=== PATIENT | female | born 1975 | race Caucasian/White ===

== ENCOUNTER 2025-02-08 05:45 | Inpatient (IN) ==
--- NOTE | 2025-01-19 09:16 | PAT Medication Instructions ---
Medication Instructions Date of Service January 19, 2025 Home Medications cholecalciferol (vitamin D3) 125 mcg (5,000 unit) tablet (Vitamin D3) 250 mcg PO QAM fexofenadine 180 mg tablet 180 mg PO QAM gabapentin 300 mg capsule 300 mg PO QAM losartan 25 mg tablet 25 mg PO QAM meloxicam 15 mg tablet 15 mg PO QAM metoprolol tartrate 25 mg tablet 25 mg PO QAM ASK your surgeon for instructions meloxicam 15 mg tablet 15 mg PO QAM DO NOT take the morning of surgery cholecalciferol (vitamin D3) 125 mcg (5,000 unit) tablet (Vitamin D3) 250 mcg PO QAM fexofenadine 180 mg tablet 180 mg PO QAM losartan 25 mg tablet 25 mg PO QAM Take morning of surgery With a small sip of water, OTHERWISE NOTHING TO EAT OR DRINK AFTER MIDNIGHT: gabapentin 300 mg capsule 300 mg PO QAM metoprolol tartrate 25 mg tablet 25 mg PO QAM Other Notes If you have any questions please call us at [phone] or [phone] or [phone] or [phone]
--- NOTE | 2025-01-24 14:01 | Anesthesiology Consultation ---
Date of Service January 24, 2025 Assessment & Plan (1) Encounter for pre-operative examination: Chart Review Chart Review: Acceptable Risk for Surgery (pending surgeon ordered PCP clearance ) and Patient seen in Pre Admission Testing - Awaiting PCP clearance 02/02/25 (Dr Blackmon) Sensitive to pain medication 6 beers daily Per PAT appt on 01/24/25, no recent illness/disease exposures, illness related symptoms, or recent illness/disease positive tests. Will leave to surgeon's discretion if preop Covid testing needed Teaching & Discussion Pre-Anesthesia Teaching/Discussion Notes: Instructed NPO after midnight before surgery,except medications with 15 cc of water. Medication instructions provided according to the PAT guidelines. History Surgery Operation Date: 02/08/25 10:05 Proposed Procedures p L5-S1 Decompression and Fusion with Spinal Cord Monitoring - Gaston Quintero DO Height/Weight Height: 5 ft 8 in Weight: 120.2 kg Allergies Allergy/AdvReac Type Severity Reaction Status Date / Time Surgical Glue Allergy Intermediate Swelling, Uncoded 01/17/25 12:09 Redness, Weeping of wound Medications Home Medications Medication Instructions Recorded Confirmed Last Taken cholecalciferol (vitamin D3) 125 250 mcg PO QAM 01/17/25 01/17/25 Unknown mcg (5,000 unit) tablet (Vitamin D3) fexofenadine 180 mg tablet 180 mg PO QAM 01/17/25 01/17/25 Unknown gabapentin 300 mg capsule 300 mg PO QAM 01/17/25 01/17/25 Unknown losartan 25 mg tablet 25 mg PO QAM 01/17/25 01/17/25 Unknown meloxicam 15 mg tablet 15 mg PO QAM 01/17/25 01/17/25 Unknown metoprolol tartrate 25 mg tablet 25 mg PO QAM 01/17/25 01/17/25 Unknown Past Medical History Medical History Adverse effect of anesthesia "Slow to wake"- groggy- no hx of reintubation or ICU stay Headache "pain related" to cervical/lumbar area as per patient Hypertension Exercise / Class Metabolic Activity III < 4 Walking/Shop/Light housework (no chest pain or SOB with flat surface ambulation ) Past Surgical History Surgical History History of arthroscopy of left knee History of arthroscopy of left shoulder History of cervical spinal surgery (2022) hardware present - Painful ROM but not limited as per patient Hx of gastric bypass Hx of hysterectomy Hx of tubal ligation Hx of wisdom tooth extraction Past Anesthesia History No Hx of Anesthesia Complications (with exception to slow to wake- groggy- no hx of reintubation or ICU stay ) and No Family Hx of Anesthesia Complications History of PONV History of PONV (due to pain medication - improved with IV anti-nausea medication ) and Hx of Motion Sickness Social History Smoking Status: Never smoker Do You Dip or Chew Tobacco: No Hx Alcohol Use: Yes Alcohol type: beer alcohol intake frequency: 3 or more drinks per day (6 beers/day ) Hx Substance Use: No substance use type: does not use Review of Systems - Hx of snoring- no hx of sleep study Patient denies chest pain, shortness of breath, dyspnea on exertion, reflux, cough, wheezing, palpitations. No hx of seizures, stroke, [place]. No hx of blood clots or blood transfusions Physical Exam Vital Signs VITALS BP 148/89 P 79 TEMP 98.3 SP02 98% RESP 16 Constitutional no acute distress ENMT Mouth: no TMJ clicking Thyromental Distance: > or= 3.5 Finger Breadths (3.5) Mallampati Class: III Missing side tooth Neck + thick neck and + limited neck extension (significant ) Respiratory normal respiratory effort; no respiratory distress Auscultation: lungs clear to auscultation bilaterally; no wheezes Cardiovascular Rate/Rhythm: regular rate and regular rhythm Heart Sounds: no murmur Vessels: no carotid bruit Musculoskeletal Spine: + pain with cervical ROM Extremities: extremities normal to inspection Psychiatric Orientation: alert Lab Results Anesthesia Preop Results Results Anesthesia Widget: WBC 6.02 K/ul (4.8-10.8) 01/24/25 Hgb 12.8 g/dl (12.0-16.0) 01/24/25 Hct 38.7 % (37.0-47.0) 01/24/25 Plt 299 K/uL (130-400) 01/24/25 Na 137 mmol/L (136-145) 01/24/25 K 4.5 mmol/L (3.5-5.1) 01/24/25 Cl 101 mmol/L (98-107) 01/24/25 CO2 30 mmol/L (21-32) 01/24/25 BUN 8 mg/dl (6-23) 01/24/25 Creat 0.68 mg/dl (0.6-1.2) 01/24/25 Glucose Level 91 mg/dl (70-99(Fasting)) 01/24/25 PT 11.0 Seconds (9.0-12.0) 01/24/25 PTT 26 Seconds (21-31) 01/24/25 INR 1.0 (0.9-1.1) 01/24/25 Urine Color Yellow 01/24/25 Urine Appearance Clear (Clear) 01/24/25 Urine pH 5.5 (4.5-7.5) 01/24/25 Urine Specific [place] 1.004 (1.000-1.030) 01/24/25 Urine Protein Negative (Negative) 01/24/25 Urine Glucose (UA) Negative (Negative) 01/24/25 Urine Ketones Negative (Negative) 01/24/25 Urine Blood Negative (Negative) 01/24/25 Urine Nitrite Negative (Negative) 01/24/25 Urine Bilirubin Negative (Negative) 01/24/25 Urine Urobilinogen Negative (Negative) 01/24/25 Urine Leukocyte Esterase Trace (Negative) H 01/24/25 Urine WBC (Auto) 0-5 /hpf (0-5) 01/24/25 Urine RBC (Auto) 0-2 /hpf (0-2) 01/24/25 Urine Hyaline Casts (Auto) 0-2 /lpf (0-2) 01/24/25 Urine Epithelial Cells (Auto) 0-2 /hpf (0-2) 01/24/25 Urine Bacteria (Auto) 4+ (None Seen) H 01/24/25 Blood Type A Positive 01/24/25 Antibody Screen NEGATIVE 01/24/25 Testing Laboratory Results Abnormal UA- urine cultures pending- will inform surgeon's office- will leave final results to surgeon's discretion to review and determine how to proceed Electrocardiogram Date: 01/24/25 Findings: + NSR @ (72bpm) Nonspecific ST abnormality Chest X-Ray Date: 01/24/25 Findings: + NAD
[2025-02-08] MEDS: ACETAMINOPHEN 500 MG TAB PO SCH (06:08)
[2025-02-08] MEDS: CeleBREX 200 MG CAP PO SCH (06:08)
[2025-02-08] MEDS: LR 60ML/HR IV SCH (06:09)
[2025-02-08] MEDS: GABAPENTIN 900 MG DOSE PO SCH (06:10)
[2025-02-08] MEDS ORDERED: ePHEDrine sulfate 50 MG/ML AMP IV PRN (06:28)
[2025-02-08] MEDS ORDERED: HYDROmorphone INJ 1 MG/ML SYRINGE IV PRN (06:28)
[2025-02-08] MEDS ORDERED: ATROPINE SULFATE 0.1 MG/ML 10ML SYR IV PRN (06:28)
[2025-02-08] MEDS ORDERED: ONDANSETRON INJ 2 MG/ML 2 ML VIAL IV PRN (06:28)
[2025-02-08] MEDS: LR 15ML/HR IV SCH (06:30)
[2025-02-08] MEDS ORDERED: ONDANSETRON INJ 2 MG/ML 2 ML VIAL ONE (07:11)
[2025-02-08] MEDS ORDERED: LIDOCAINE 2% 2 ML VIAL/AMP(20MG/ML) INFIL ONE ×2 (07:11)
[2025-02-08] MEDS ORDERED: MIDAZOLAM HCL 1 MG/ML 2ML VIAL ONE (07:11)
[2025-02-08] MEDS ORDERED: ROCURONIUM BROMIDE 10 MG/ML 5 ML VIAL IV ONE ×2 (07:11→08:24)
[2025-02-08] MEDS ORDERED: DEXAMETHASONE SOD INJ 4 MG/ML VIAL ONE (07:11)
[2025-02-08] MEDS ORDERED: fentaNYL citrate PF 100 MCG/2 ML VIAL ONE (07:11)
[2025-02-08] MEDS ORDERED: PROPOFOL IV EMULSION 10 MG/ML 20 ML VIAL IV ONE ×2 (07:11)
[2025-02-08] MEDS ORDERED: SUGAMMADEX SODIUM 200 MG/2 ML VIAL IV ONE (07:15)
--- NOTE | 2025-02-08 07:40 | History & Physical Bridge Note ---
Date of Service February 08, 2025 History & Physical Bridge Note I have examined the patient, reviewed the History & Physical and in the interval since the performance of the History & Physical I have noted the following changes of clinical significance: no changes noted
--- NOTE | 2025-02-08 07:41 | History & Physical Report ---
Date of Service February 08, 2025 Assessment & Plan (1) Lumbosacral spondylosis with radiculopathy: Plan: L5-S1 decompression fusion History of Present Illness Chief Complaint: Back and leg pain Primary Care Provider: Renato Blackmon DO This is a 50-year-old female who presents with persistent back and leg pain after failing since course of nonoperative care is here for surgical invention.-year-old Allergies Allergy/AdvReac Type Severity Reaction Status Date / Time Surgical Glue Allergy Intermediate Swelling, Uncoded 02/08/25 06:05 Redness, Weeping of wound Home Medications Medication Instructions Recorded Confirmed Type cholecalciferol (vitamin D3) 125 250 mcg PO QAM 01/17/25 02/08/25 History mcg (5,000 unit) tablet (Vitamin D3) fexofenadine 180 mg tablet 180 mg PO QAM 01/17/25 02/08/25 History gabapentin 300 mg capsule 300 mg PO QAM 01/17/25 02/08/25 History losartan 25 mg tablet 25 mg PO QAM 01/17/25 02/08/25 History meloxicam 15 mg tablet 15 mg PO QAM 01/17/25 02/08/25 History metoprolol tartrate 25 mg tablet 25 mg PO QAM 01/17/25 02/08/25 History Past Med/Surg History Problem List (Updated 02/08/25 @ 07:40 by Gaston Quintero DO) Lumbosacral spondylosis with radiculopathy Encounter for pre-operative examination Medical History Adverse effect of anesthesia "Slow to wake"- groggy- no hx of reintubation or ICU stay Headache "pain related" to cervical/lumbar area as per patient Hypertension Surgical History History of arthroscopy of left knee History of arthroscopy of left shoulder History of cervical spinal surgery (2022) hardware present - Painful ROM but not limited as per patient Hx of gastric bypass Hx of hysterectomy Hx of tubal ligation Hx of wisdom tooth extraction Social History Smoking Status: Never smoker Second Hand Exposure: No; Do You Dip or Chew Tobacco: No; Tobacco Cessation Education Requested by Patient: No Hx Alcohol Use: Yes Alcohol type: beer Hx Substance Use: No Preferred Language: Bahamian Communication Ability: Effective Literacy Coach Required: No Beliefs That Will Affect Care: None Current Living Situation: Spouse Other Information That Helps Us Care for You: No Feels Safe at Home: Yes Safety Concerns: Feels Safe At This Time Assistive Devices: Glasses Physical Exam Physical Exam: Patient alert and oriented heart regular rhythm lungs clear Results & Data Results & Data Vital Signs (Past 12 Hours) Vital Signs Temp Pulse Resp BP Pulse Ox O2 Del Method 02/08/25 05:59 37.1 C 72 20 176/103 H 96 Room Air
[2025-02-08] MEDS: ceFAZolin 3000MG 3,000 MG/72.5 ML BAG IV SCH (07:47)
[2025-02-08] MEDS ORDERED: PHENYLEPHRINE 100MCG/ML 5ML SYR ONE ×2 (08:10→08:26)
[2025-02-08] MEDS: BUPIVACAINE/EPINEPHRINE 0.25% 1:200,000 30 ML VIAL ONE (08:18)
[2025-02-08] MEDS: ceFAZolin 330 MG/ML 1 GM VIAL ONE (08:18)
[2025-02-08] MEDS ORDERED: ePHEDrine sulfate 50 MG/5 ML SYR ONE (08:26)
[2025-02-08] MEDS ORDERED: MoRPHine SULFATE 2 MG/ML CARP ONE (09:02)
[2025-02-08] MEDS: SURGICEL ABSORB HEMOSTAT 2IN X 14IN TOP ONE (09:02)
--- NOTE | 2025-02-08 09:19 | Operative Report ---
Post Operative Report Pre & Post Diagnosis Operation Date: 02/08/25 07:45 Pre-Op Diagnosis: #1 lumbar spondylolisthesis with radiculopathy #2 lumbar spondylosis with radiculopathy #3 morbid obesity Post-Op Diagnosis: Same I identified the patient and participated in the time-out.: Yes Procedure Operation Date: 02/08/25 07:45 Actual Procedures #1 lumbar decompression bilaterally facetectomies and foraminotomies L5-S1. #2 posterior spinal fusion L5-S1. #3 placed posterior instrumentation using Valdez L5-S1. #4 interbody fusion L5-S1 to #5 for 13 x 26 mm x 2 at L5-S1. #6 placement locally harvested morselized autograft posterior gutters. #7 placement infuse collagen sponge, with Koros in the posterior gutters and os design interbody space. #8 application of versa wrap over the exposed dura. Surgeon Gaston Quintero, DO Drying Machine Operator Jeni Chacon Estimated Blood Loss 100 Findings See Below The patient is 5 foot 8 weighing over 117 kg with a BMI in excess of 39. Patient's body mass did create significant technical difficulty with positioning exposure and the procedure itself at least 50% increased the operative time. I am recommending a modifier 22. Specimens None Indications This is a 50-year-old female presents above-mentioned diagnosis after failing course of nonoperative care is here for surgical invention. Description of Procedure Patient is met with identified informed consent obtained. Patient was then taken to the operative suite underwent intubation placed in a prone position on the Tyson table atop the Inocencio frame. All bony prominences well-padded eyes inspected to ensure no external precipice upon the. This point the lumbar spine was prepped and draped in normal sterile fashion. Sharp dissection with the assistance of Bovie cautery performed down to and exposing the lamina transverse processes of L5-S1. Obvious bilateral pars defect identified. A complete laminectomy of L5 was then performed including bilateral medial facetectomies and foraminotomies addressing severe neural compression. Pedicle screws then placed in L5-S1 bilaterally with assistance of fluoroscopy in the process jack placed. By way of transforaminal approach on the left a discectomy of L5-S1 was performed endplates corrected to subcortical bleeding bone and a 13 x 26 mm spiral cage filled with os design bone graft tapped in position. And then proceeded to the right transforaminal region L5-S1. Again discectomy performed. Endplates guided to subcortical bleeding bone and a second 13 x 26 mm spiral cage filled with os design tapped in position. The rods then compressed locked into final position bilaterally. The transverse processes of L5 and the sacral ala burred to subcortical bleeding bone. Infuse collagen sponge bath Koros and local autograft placed in the posterior gutters. 15 round MILLICENT drain inserted. Versa wrap placed over the exposed dura. The incision was then closed with 1 Vicryl the fascia 2-0 Vicryl subcutaneously and 4 Monocryl for final skin closure. Steri-Strips and sterile dressing placed. Patient waken taken PACU stable condition. Please note Jeni Chacon was present at the entire procedure note patient positioning complex portion of the surgery and final skin closure. Im ordering 10 grams of Collagen Powder ([facility] A6010 Primary Dressing) and 10 bordered super absorbent ([facility] A6196 Secondary Dressing) to treat an incision wound that was caused by a spine procedure. The incision is approximately 2 cm(W) x 2 cm(L) down to the spinal column and epidural space 2 cm (D) in size and is a full thickness wound showing no signs of infection. Collagen comes in 1 gram packets so 10 packets were ordered. Given the size of the wound, with moderate exudate I chose to order a 10 day supply. The patient will be provided instructions for proper application of the collagen wound kit. The patient will be asked to apply the collagen powder daily and then cover it with sterile dressings dispensed. Collagen was selected as I expect the collagen to attract monocytes and fibroblasts, act as a sacrificial substrate for MMPs, and ultimately proved a matrix for tissue and vessel growth. The collagen will act as a primary dressing in this scenario. It is medically necessary for proper healing of these wounds to improve bioavailability and contact with each wound surface, this is also to help prevent infection of wounds and promote healing ultimately leading to a better healing outcome and limit the risk of infection. I attest to the content of the Intraoperative Record and any orders documented therein. Any exceptions are noted below.
[2025-02-08] MEDS: FLOSEAL HEMOSTATIC MATRIX 10ML TOP ONE (09:20)
[2025-02-08] MEDS: fentaNYL citrate PF 100 MCG/2 ML VIAL IV PRN (09:41)
[2025-02-08] MEDS ORDERED: SOD PHOSPHATE/SOD BIPHOSPHATE ENEMA 132 ML BTL PR PRN (10:32)
[2025-02-08] MEDS ORDERED: MAGNESIUM HYDROXIDE SUSP 30 ML UDC PO PRN (10:32)
[2025-02-08] MEDS ORDERED: hydrOXYzine HCl 25 MG TAB PO PRN (10:32)
[2025-02-08] MEDS ORDERED: NALOXONE HCL 0.4 MG/1 ML VIAL/CARP IV PRN (10:32)
[2025-02-08] MEDS ORDERED: LORazepam 2 MG/1 ML VIAL IV PRN (10:32)
[2025-02-08] MEDS ORDERED: DO NOT ADMINISTER PNEUMOCOCCAL VACCINE PRN (10:32)
[2025-02-08] MEDS ORDERED: METOCLOPRAMIDE HCL INJ 5 MG/ML 2 ML VIAL IV PRN (10:32)
[2025-02-08] MEDS ORDERED: FAMOTIDINE 20 MG TAB PO PRN (10:32)
[2025-02-08] MEDS ORDERED: ALUMINUM/MAGNESIUM SUSP 30 ML UDC PO PRN (10:32)
[2025-02-08] MEDS ORDERED: LORazepam 0.5 MG TAB PO PRN (10:32)
[2025-02-08] MEDS ORDERED: DO NOT ADMINISTER FLU VACCINE PRN (10:32)
[2025-02-08] MEDS ORDERED: bisacodyL 10 MG SUPP PR PRN (10:32)
[2025-02-08] MEDS ORDERED: PROMETHAZINE 12.5 MG/50.5 ML BAG IV PRN (10:32)
[2025-02-08] MEDS ORDERED: diphenhydrAMINE Capsule 25 MG CAP PO PRN (10:32)
--- NOTE | 2025-02-08 10:34 | Fluoroscopy Report ---
FL lumbar spine 2-3V CLINICAL HISTORY: L5-S1 DECOMPRESSION AND FUSION COMPARISON STUDY: None FLUOROSCOPY TIME: 23.4 seconds FLUOROSCOPY IMAGES: 2 EXPOSURE DOSE: 23.79 mGy FINDINGS: Fluoroscopic guidance was provided for L5-S1 discectomy and fusion. IMPRESSION: Please refer to the procedure report for evaluation based upon her real-time fluoroscopic observation ACT [id number]: Negative or not required by law. Electronically signed by: Maria M Chanel M.D. 02/08/2025 10:33 AM
--- NOTE | 2025-02-08 10:57 | Consultation ---
Date of Consultation February 08, 2025 Assessment & Plan (1) Lumbosacral spondylosis with radiculopathy: (2) Hypertension: Plan This is a 50 yr old F who has a significant PMH of HTN and hx of gastric bypass who presents for elective lumbar procedure by Dr. Quintero. Pt underwent a L5-S1 decompression and fusion. # S/P Lumbar decompression and fusion L5-S1 by Dr. Quintero EBL 100ml tolerated procedure well pain, wound, activities per ortho monitor hgb, pre op was 12.8 #HTN: chronic, stable continue metoprolol and losartan with parameters DVT ppx: per primary PCP: Dr. Spaulding FULL CODE Dispo: per primary Thank you for this consultation. We will follow the patient with you during their hospital stay. You can reach a member of the [facility] Hospitalist Team 04/05 via hospitalist role on tiger text. I spent a total of 40 minutes coordinating, documenting and providing care for this patient excluding time spent in the performance of separately billed services or time spent by another provider/QHP. Supervising Physician Co-Signing Physician Notes Patient is a 50-year-old female with history of hypertension, gastric bypass surgery, seasonal allergies and other medical problems who was consulted for postop medical management. Patient is doing well postoperatively. She denies any significant pain at surgical site. Also denies any chest pain, dyspnea, nausea, vomiting, abdominal pain. Please review HPI for complete details. Physical Exam: Vitals signs as noted above General Appearance:Obese, no apparent distress Head: normocephalic, Atraumatic Eyes: normal inspection, EOMI Neck: supple, Trachea midline Respiratory/Chest: Normal breath sounds, CTA, No accessory muscle use Cardiovascular: S1, S2, No murmur Abdomen/GI:Soft, Non tender, Bowel sounds present Back:Surgical site in dressing Extremities/Musculoskeletal:normal inspection, no edema Neurologic/Psych:AAOX3, grossly no focal neurological deficits Skin: normal color, warm S/P lumbar decompression, fusion surgery Hypertension Seasonal allergies Vitamin D deficiency Monitor for postop blood loss anemia Continue bowel regimen to prevent constipation DVT prophylaxis, activity per primary team Pain control as needed PT OT when appropriate I personally interviewed and examined the patient at bedside. I have reviewed the advanced practitioner's documentation on the date of service referred in note and agree with plan. Patient's care is coordinated with Zofia Mosley. Please refer to the documentation above for details of patient's presentation and for discussion of other issues. I spent a total of 26minutes coordinating, documenting, and providing care for this patient excluding time spent in the performance of separately billed services or time spent by another provider/QHP. History of Present Illness Requesting Physician: Dr. Quintero Reason for Consultation: Post op medical management Attending Physician: Gaston Quintero, DO History of Present Illness This is a 50 yr old F who has a significant PMH of HTN and hx of gastric bypass who presents for elective lumbar procedure by Dr. Quintero. Pt underwent a L5-S1 decompression and fusion. She tolerated the procedure well. Her eBL was 100ml. Hx obtained from pt and at bedside. She complains of low back pain, 5/10. Prior to surgery she states she has had debilitating back pain to where she is on light duty at work. She is an EMS worker. She also had symptoms going down her left leg. SHe denies f/c/s, chest pain, sob, n/v/d, abd pain. She denies any issues passing urine/stool prior to surgery. She follows with Dr. Spaulding for routine primary care. She has a hx of HTN controlled on losartan and metoprolol. Allergies Allergy/AdvReac Type Severity Reaction Status Date / Time Surgical Glue Allergy Intermediate Swelling, Uncoded 02/08/25 06:05 Redness, Weeping of wound Home Medications Medication Instructions Recorded Confirmed Type cholecalciferol (vitamin D3) 125 250 mcg PO QAM 01/17/25 02/08/25 History mcg (5,000 unit) tablet (Vitamin D3) fexofenadine 180 mg tablet 180 mg PO QAM 01/17/25 02/08/25 History gabapentin 300 mg capsule 300 mg PO QAM 01/17/25 02/08/25 History losartan 25 mg tablet 25 mg PO QAM 01/17/25 02/08/25 History meloxicam 15 mg tablet 15 mg PO QAM 01/17/25 02/08/25 History metoprolol tartrate 25 mg tablet 25 mg PO QAM 01/17/25 02/08/25 History Patient History Medical History Headache "pain related" to cervical/lumbar area as per patient Hypertension Adverse effect of anesthesia "Slow to wake"- groggy- no hx of reintubation or ICU stay Surgical History Hx of wisdom tooth extraction History of arthroscopy of left knee History of arthroscopy of left shoulder Hx of gastric bypass Hx of hysterectomy Hx of tubal ligation History of cervical spinal surgery (2022) hardware present - Painful ROM but not limited as per patient Social History Smoking Status: Never smoker Second Hand Exposure: No; Do You Dip or Chew Tobacco: No; Tobacco Cessation Education Requested by Patient: No Hx Alcohol Use: Yes Alcohol type: beer Hx Substance Use: No Preferred Language: Amharic Communication Ability: Effective Assembly Member Required: No Beliefs That Will Affect Care: None Current Living Situation: Spouse Other Information That Helps Us Care for You: No Feels Safe at Home: Yes Safety Concerns: Feels Safe At This Time Assistive Devices: Glasses Review of Systems Review of Systems: All systems reviewed & are unremarkable except as noted in HPI & below Physical Exam Physical Exam: constitutional: WD/WN, vitals as above, NAD, sitting up in bed, pleasant, conversing easily Head: Normocephalic, Atraumatic Eyes: PERRL, conjunctivae normal, anicteric sclerae ENMT: external ear and nose normal, oropharynx normal Neck: trachea midline, no thyromegaly normal visual inspection Respiratory: normal respiratory effort, lungs clear to auscultation, no wheeze, rales, rhonchi. Normal insp/exp effort, no accessory muscle use Cardiovascular: RRR, no murmur, no edema Vessels: no JVD or carotid bruit Chest: normal inspection of chest Abdomen: normal bowel sounds, soft, nontender, no hepatosplenomegaly Musculoskeletal: no cyanosis or clubbing, extremities motor strength 5/5 Skin: no rashes, warm and dry normal turgor , lumbar incision CDI Neurologic: PERRL, EOMI, accommodation nl, no face palsy, no dysarthria CN's II-XI intact bilaterally and moves all extremities Psychiatric: A+Ox3, euthymic affect Lymphatic: no cervical or axillary lymphadenopathy : deferred Results & Data Vital Signs (Past 12 Hours) Vital Signs Temp Pulse Pulse Resp BP BP Pulse Ox 02/08/25 10:10 71 20 134/86 95 02/08/25 10:00 70 14 130/95 94 02/08/25 09:50 36.4 C L 77 15 127/91 94 02/08/25 09:40 83 16 128/84 95 02/08/25 09:31 36.2 C L 89 19 135/82 96 02/08/25 05:59 37.1 C 72 20 176/103 H 96 O2 Del Method O2 Flow Rate 02/08/25 10:10 Nasal Cannula 2 02/08/25 10:00 Nasal Cannula 2 02/08/25 09:50 Nasal Cannula 2 02/08/25 09:40 Oxymask 4 02/08/25 09:31 Oxymask 4 02/08/25 05:59 Room Air Laboratory Results I have independently reviewed and interpreted patient's pre admitting labs including CBC, CMP, PTT, PT/INR. Diagnostic Findings Lumbar Spine X-Ray 02/08/25 07:45 FL lumbar spine 2-3V CLINICAL HISTORY: L5-S1 DECOMPRESSION AND FUSION COMPARISON STUDY: None FLUOROSCOPY TIME: 23.4 seconds FLUOROSCOPY IMAGES: 2 EXPOSURE DOSE: 23.79 mGy FINDINGS: Fluoroscopic guidance was provided for L5-S1 discectomy and fusion. IMPRESSION: Please refer to the procedure report for evaluation based upon her real-time fluoroscopic observation ACT [id number]: Negative or not required by law. Electronically signed by: Maria M Chanel M.D. 02/08/2025 10:33 AM Medications Administered Current Inpatient Medications Acetaminophen (Acetaminophen 500 Mg Tab) 1,000 mg PO PREOP FERNANDO Stop: 02/08/25 18:00 Last Admin: 02/08/25 06:08 Dose: 1,000 mg Acetaminophen (Acetaminophen 500 Mg Tab) 1,000 mg PO Q8H PRN PRN Reason: MILD Pain Scale 1,2,3 & Pre PT Stop: 03/10/25 10:31 Al Hydrox/Mg Hydrox/Simethicone (Aluminum/Magnesium Susp 30 Ml Udc) 30 ml PO Q6H PRN PRN Reason: Dyspepsia Stop: 03/10/25 10:31 Atropine Sulfate (Atropine Sulfate 0.1 Mg/Ml 10ml Syr) 0.5 mg IV Q1M PRN PRN Reason: PACU Use-HR<40 &/or Bradycardi Stop: 02/08/25 14:28 Bisacodyl (Bisacodyl 10 Mg Supp) 10 mg NH DAILY PRN PRN Reason: Constipation Stop: 03/10/25 10:31 Celecoxib (Celebrex 200 Mg Cap) 200 mg PO PREOP FERNANDO Stop: 02/08/25 18:00 Last Admin: 02/08/25 06:08 Dose: 200 mg Diphenhydramine HCl (Diphenhydramine Capsule 25 Mg Cap) 25 mg PO Q6H PRN PRN Reason: Allergic Rhinitis/Insomnia Stop: 03/10/25 10:31 Ephedrine Sulfate (Ephedrine Sulfate 50 Mg/Ml Amp) 5 mg IV Q5M PRN PRN Reason: PACU Use Only-SBP<90 mmHg Stop: 02/08/25 14:28 Famotidine (Famotidine 20 Mg Tab) 20 mg PO Q12H PRN PRN Reason: Dyspepsia Stop: 03/10/25 10:31 Fentanyl Citrate (Fentanyl Citrate Pf 100 Mcg/2 Ml Vial) 25 mcg IV Q5M PRN PRN Reason: PACU Use Only-Pain Stop: 02/08/25 14:28 Last Admin: 02/08/25 09:54 Dose: 25 mcg Fexofenadine HCl (Fexofenadine Hcl 180 Mg Tab) 180 mg PO QAM COUNTS INCLUDE 234 BEDS AT THE [facility] Stop: 03/11/25 08:59 Gabapentin (Gabapentin 900 Mg Dose) 900 mg PO PREOP FERNANDO Stop: 02/08/25 18:00 Last Admin: 02/08/25 06:10 Dose: 600 mg Gabapentin (Gabapentin 300 Mg Cap) 300 mg PO QAM COUNTS INCLUDE 234 BEDS AT THE [facility] Stop: 03/11/25 08:59 Hydromorphone HCl (Hydromorphone Inj 1 Mg/Ml Syringe) 0.25 mg IV Q5M PRN PRN Reason: PACU Use Only-Pain Stop: 02/08/25 14:28 Hydromorphone HCl (Hydromorphone Inj 0.5 Mg/0.5 Ml Syr) 0.5 mg IV Q3H PRN PRN Reason: MODERATE Pain (Scale 4,5,6) & Pre PT Stop: 02/22/25 10:31 Hydromorphone HCl (Hydromorphone Inj 1 Mg/Ml Syringe) 1 mg IV Q3H PRN PRN Reason: SEVERE Pain (Scale 7,8,9,10) Stop: 02/22/25 10:31 Hydroxyzine HCl (Hydroxyzine Hcl 25 Mg Tab) 25 mg PO Q8H PRN PRN Reason: Anxiety Stop: 03/10/25 10:31 Lactated Ringer's (Lr) 1,000 mls @ 60 mls/hr IV .[id number] FERNANDO Stop: 02/08/25 22:39 Last Admin: 02/08/25 06:09 Dose: Not Given Lactated Ringer's (Lr) 1,000 mls @ 15 mls/hr IV .Q24H FERNANDO Stop: 02/09/25 05:59 Last Infusion: 02/08/25 07:45 Dose: Infused Cefazolin Sodium (Ancef 3000mg) 3,000 mg in 72.5 mls @ 130 mls/hr IV PREOP FERNANDO; Protocol Stop: 02/08/25 18:00 Last Admin: 02/08/25 07:47 Dose: 130 mls/hr Acetaminophen (Ofirmev) 1,000 mg in 100 mls @ 400 mls/hr IV Q8H PRN PRN Reason: Pain Rating 1-3 & Pre PT Stop: 02/09/25 10:32 Cefazolin Sodium (Ancef 2000mg) 2,000 mg in 15 mls @ 3.75 mls/min IV Q8H FERNANDO; Protocol Stop: 02/08/25 23:33 Promethazine HCl (Phenergan) 12.5 mg in 50.5 mls @ 202 mls/hr IV Q6H PRN PRN Reason: Nausea And Vomiting Stop: 03/10/25 10:31 Dexamethasone 6 mg/ Syringe 1.5 mls @ 1 mls/min IV DAILY FERNANDO Stop: 02/11/25 09:02 Influenza Virus Vaccine Quadrival (Do Not Administer Flu Vaccine) 1 each N/A PRN PRN PRN Reason: Notification Stop: 03/10/25 10:31 Lorazepam (Lorazepam 0.5 Mg Tab) 0.5 mg PO Q8H PRN PRN Reason: Sedation/Anxiety Stop: 03/10/25 10:31 Lorazepam (Lorazepam 2 Mg/1 Ml Vial) 0.5 mg IV Q8H PRN PRN Reason: Sedation/Anxiety Stop: 03/10/25 10:31 Losartan Potassium (Losartan Potassium 25 Mg Tab) 25 mg PO QAM COUNTS INCLUDE 234 BEDS AT THE [facility] Stop: 03/11/25 08:59 Magnesium Hydroxide (Magnesium Hydroxide Susp 30 Ml Udc) 30 ml PO Q24H PRN PRN Reason: Constipation Stop: 03/10/25 10:31 Metoclopramide HCl (Metoclopramide Hcl Inj 5 Mg/Ml 2 Ml Vial) 10 mg IV Q6H PRN PRN Reason: Nausea &/or Vomiting Stop: 03/10/25 10:31 Metoprolol Tartrate (Metoprolol Tartrate 25 Mg Tab) 25 mg PO QAM COUNTS INCLUDE 234 BEDS AT THE [facility] Stop: 03/11/25 08:59 Naloxone HCl (Naloxone Hcl 0.4 Mg/1 Ml Vial/Carp) 0.1 mg IV Q5M PRN PRN Reason: Oversedation/Resp depression Stop: 03/10/25 10:31 Ondansetron HCl (Ondansetron Inj 2 Mg/Ml 2 Ml Vial) 4 mg IV ONCE PRN PRN Reason: PACU Use Only-Nausea/Vomiting Stop: 02/08/25 14:28 Ondansetron HCl (Ondansetron Inj 2 Mg/Ml 2 Ml Vial) 4 mg IV Q6H PRN PRN Reason: Nausea &/or Vomiting Stop: 03/10/25 10:31 Ondansetron HCl (Ondansetron 4 Mg Od Tab) 4 mg PO Q6H PRN PRN Reason: Nausea Stop: 03/10/25 10:31 Oxycodone HCl (Oxycodone Hcl Ir 5 Mg Tab (Immediate Release)) 5 - 10 mg PO Q4H PRN PRN Reason: Pain & Pre PT Stop: 02/22/25 10:31 Pneumococcal Polyvalent Vaccine (Do Not Administer Pneumococcal Vaccine) 1 each N/A PRN PRN PRN Reason: Notification Stop: 03/10/25 10:31 Polyethylene Glycol (Polyethylene (Miralax) 17 Gm Pack) 17 gm PO Q6 FERNANDO Stop: 03/11/25 05:59 Senna/Docusate Sodium (Docusate Sodium/Senna 50/8.6mg Tab) 2 tab PO HS FERNANDO Stop: 03/10/25 20:59 Sodium Biphosphate/Sodium Phosphate (Sod Phosphate/Sod Biphosphate Enema 132 Ml Btl) 132 ml NH ONE PRN PRN Reason: Constipation Stop: 03/10/25 10:31 Tramadol HCl (Tramadol Hcl 50 Mg Tablet) 50 - 100 mg PO Q4H PRN PRN Reason: Moderate-Severe pain & Pre PT Stop: 03/10/25 10:31 Vitamin D (Cholecalciferol 125 Mcg (5,000 Units) Tab) 250 mcg PO QAM FERNANDO Stop: 03/11/25 08:59 ECG Additional Comments: I have independently reviewed and interpreted patient's admitting EKG which revealed: NSR, 72bpm, pt with T wave inversions in leads III and V3, otherwise no consecutive ST changes
--- NOTE | 2025-02-08 11:03 | Anesthesiology Progress Note ---
Date of Service February 08, 2025 Anesthesia Post Procedure Vital Signs Vital Signs: Temp Pulse Pulse Resp BP BP Pulse Ox 02/08/25 10:51 36.5 C 66 16 128/89 96 02/08/25 10:10 71 20 134/86 95 02/08/25 10:00 70 14 130/95 94 02/08/25 09:50 36.4 C L 77 15 127/91 94 02/08/25 09:40 83 16 128/84 95 02/08/25 09:31 36.2 C L 89 19 135/82 96 02/08/25 05:59 37.1 C 72 20 176/103 H 96 O2 Del Method O2 Flow Rate 02/08/25 10:51 Nasal Cannula 2 02/08/25 10:10 Nasal Cannula 2 02/08/25 10:00 Nasal Cannula 2 02/08/25 09:50 Nasal Cannula 2 02/08/25 09:40 Oxymask 4 02/08/25 09:31 Oxymask 4 02/08/25 05:59 Room Air Pain Intensity Bilateral Back: Pain Intensity: 4 Back: Pain Intensity: 4 Transfer of Care Handoff Completed per policy Notes Mental Status: alert / awake / arousable Patient Amnestic to Procedure: Yes Nausea / Vomiting: adequately controlled Pain: adequately controlled Airway Patency, RR, SpO2: stable & adequate BP & HR: stable & adequate Hydration State: stable & adequate Anesthetic Complications: no major complications apparent and Pt Satisfied with anesthetic care
[2025-02-08] MEDS: HYDROmorphone INJ 1 MG/ML SYRINGE IV PRN (11:19)
[2025-02-08] MEDS: ONDANSETRON INJ 2 MG/ML 2 ML VIAL IV PRN (11:19)
[2025-02-08] MEDS: ceFAZolin 2000MG 2,000 MG/15 ML SYR IV SCH (16:20)
[2025-02-08] MEDS: oxyCODONE HCL IR 5 MG TAB (IMMEDIATE RELEASE) PO PRN (19:12)
[2025-02-08] MEDS: DOCUSATE SODIUM/SENNA 50/8.6MG TAB PO SCH (20:36)
[2025-02-08] MEDS: HYDROmorphone INJ 0.5 MG/0.5 ML SYR IV PRN (22:59)
[2025-02-09] MEDS: ONDANSETRON 4 MG OD TAB PO PRN (03:32)
[2025-02-09] MEDS: POLYETHYLENE (MIRALAX) 17 GM PACK PO SCH (05:05)
[2025-02-09 07:31] LABS: Basophils # (auto) 0.02 K/uL (0.00-0.20); Basophils % (auto) 0.2 %; Hematocrit (blood only) 33.8 % (37.0-47.0); Hemoglobin 11.2 g/dl (12.0-16.0); Immature Granulocytes # (auto) 0.06 K/uL (0.01-0.20); Immature Granulocytes % (auto) 0.5 %; Lymphocytes % (auto) 8.8 %; Mean Corpuscular Hemoglobin 29.7 pg (25.0-34.0); Mean Corpuscular Hgb Conc 33.1 g/dL (32.0-36.0); Mean Corpuscular Volume 89.7 fL (80.0-100.0); Monocytes # (auto) 0.85 K/uL (0.11-0.59); Monocytes % (auto) 7.5 %; Neutrophils # (auto) 9.43 K/uL (1.40-6.50); Platelet Count 232 K/uL (130-400); RDW Coefficient of Variation 12.4 % (11.5-14.5); RDW Standard Deviation 40.3 fL (36.4-46.3); Red Blood Count 3.77 M/uL (4.20-5.40); White Blood Count 11.36 K/ul (4.8-10.8)
[2025-02-09] MEDS: ACETAMINOPHEN 1,000 MG/100 ML VIAL IV PRN (07:50)
[2025-02-09 07:55] LABS: BUN Creatinine Ratio 13.2 (10-20); Calcium 8.4 mg/dl (8.6-10.3); Creatinine Clr Calc Pharmacy 172.7 ml/min; Potassium 3.6 mmol/L (3.5-5.1)
[2025-02-09] MEDS: dexAMETHasone 6 MG in SYRINGE 0 ML IV SCH (07:56)
[2025-02-09] MEDS: CHOLECALCIFEROL 125 MCG (5,000 UNITS) TAB PO SCH (07:56)
[2025-02-09] MEDS: METOPROLOL TARTRATE 25 MG TAB PO SCH (07:57)
[2025-02-09] MEDS: FEXOFENADINE HCL 180 MG TAB PO SCH (07:57)
[2025-02-09] MEDS: GABAPENTIN 300 MG CAP PO SCH (07:57)
[2025-02-09] MEDS: LOSARTAN POTASSIUM 25 MG TAB PO SCH (07:57)
--- NOTE | 2025-02-09 08:35 | Orthopedic Progress Note ---
Date of Service February 09, 2025 Assessment & Plan (1) Lumbosacral spondylosis with radiculopathy: Plan: At this point we will continue physical therapy monitor MILLICENT operatively discharge home the next few days. Admission and Anticipated Discharge Date Admission Date: February 08, 2025 Subjective Back pain is controlled leg symptoms are markedly improved patient has been up and ambulating Physical Exam Physical Exam: Patient is good strength testing. Is comfortable. Results & Data Vital Signs (Past 12 Hours) Vital Signs Temp Pulse Resp BP Pulse Ox O2 Del Method 02/09/25 07:11 36.9 C 71 18 144/89 H 94 Room Air 02/09/25 03:31 36.8 C 82 18 142/89 H 96 Room Air 02/08/25 23:00 36.7 C 84 18 141/92 H 94 Room Air Queries Orthopedic Spine Obesity: Yes
[2025-02-09] MEDS: traMADol HCL 50 MG TABLET PO PRN (11:25)
--- NOTE | 2025-02-09 15:37 | Hospitalist Progress Note ---
Date of Service February 09, 2025 Assessment & Plan (1) Lumbosacral spondylosis with radiculopathy: (2) Hypertension: Plan This is a 50 yr old F who has a significant PMH of HTN and hx of gastric bypass who presents for elective lumbar procedure by Dr. Quintero. Pt underwent a L5-S1 d ecompression and fusion. Lumbosacral spondylosis with radiculopathy S/P Lumbar decompression and fusion L5-S1 by Dr. Quintero EBL 100ml tolerated procedure well pain, wound, activities per ortho monitor hgb, pre op was 12.8 HTN: chronic, stable continue metoprolol and losartan with parameters DVT ppx: per primary PCP: Dr. Spaulding FULL CODE Dispo: per primary Thank you for this consultation. We will follow the patient with you during their hospital stay. You can reach a member of the [facility] Hospitalist Team 04/05 via hospitalist role on tiger text. Admission and Anticipated Discharge Date Admission Date: February 08, 2025 Subjective pt was seen sitting in bed Stated had an episode in the AM where pain was not controlled. Review of Systems Review of Systems: All systems reviewed & are unremarkable except as noted in Subjective Physical Exam Physical Exam: General: Alert, oriented. No acute distress HEENT: NC/AT CV: RRR Resp: Breath sounds clear bilaterally, no increased effort of breathing Abdomen:Soft, nontender Extremities: No edema in lower extremities bilaterally. Results & Data Results & Data Vital Signs (Past 12 Hours) Vital Signs Temp Pulse Resp BP BP Pulse Ox O2 Del Method 02/09/25 14:40 36.7 C 63 18 125/81 94 Room Air 02/09/25 11:09 36.7 C 70 16 111/72 96 Room Air 02/09/25 07:45 Room Air 02/09/25 07:11 36.9 C 71 18 144/89 H 94 Room Air
[2025-02-09] MEDS: ACETAMINOPHEN 500 MG TAB PO PRN (18:10)
[2025-02-10 06:43] LABS: Basophils # (auto) 0.02 K/uL (0.00-0.20); Basophils % (auto) 0.2 %; Eosinophils # (auto) 0.02 K/uL (0.00-0.50); Eosinophils % (auto) 0.2 %; Hematocrit (blood only) 32.3 % (37.0-47.0); Hemoglobin 10.5 g/dl (12.0-16.0); Immature Granulocytes # (auto) 0.07 K/uL (0.01-0.20); Immature Granulocytes % (auto) 0.8 %; Lymphocytes # (auto) 1.21 K/uL (1.20-3.40); Lymphocytes % (auto) 13.9 %; Mean Corpuscular Hemoglobin 29.6 pg (25.0-34.0); Mean Corpuscular Hgb Conc 32.5 g/dL (32.0-36.0); Mean Platelet Volume 9.4 fL (9.4-12.4); Monocytes # (auto) 0.67 K/uL (0.11-0.59); Monocytes % (auto) 7.7 %; Neutrophils # (auto) 6.69 K/uL (1.40-6.50); Neutrophils % (auto) 77.2 %; Platelet Count 226 K/uL (130-400); RDW Coefficient of Variation 12.7 % (11.5-14.5); RDW Standard Deviation 41.9 fL (36.4-46.3); Red Blood Count 3.55 M/uL (4.20-5.40); White Blood Count 8.68 K/ul (4.8-10.8)
[2025-02-10 07:10] LABS: BUN Creatinine Ratio 20.7 (10-20); Calcium 8.2 mg/dl (8.6-10.3); Creatinine Clr Calc Pharmacy 157.8 ml/min; Potassium 3.9 mmol/L (3.5-5.1)
[2025-02-10 07:41] VITALS: RESP 15; O2SAT 94
--- NOTE | 2025-02-10 10:05 | Discharge Summary ---
Date of Service February 10, 2025 Admission HPI Per Admitting Provider This is a 50-year-old female who presents with persistent back and leg pain after failing since course of nonoperative care is here for surgical invention.-year-old Principal Diagnosis Lumbar spondylolisthesis with radiculopathy Discharge Data Allergies Allergy/AdvReac Type Severity Reaction Status Date / Time Surgical Glue Allergy Intermediate Swelling, Uncoded 02/08/25 06:05 Redness, Weeping of wound Consultations 02/08/25 10:32 Consult Hospitalist Routine Procedures Performed Operation Date: 02/08/25 07:45 Actual Procedures p L5-S1 Decompression and Fusion(Not Applicable) - Gaston Quintero DO Ordered Studies 02/08/25 07:45 FL lumbar spine 2-3V Routine Hospital Course (1) Lumbosacral spondylosis with radiculopathy: Patient underwent lumbar decompression fusion tolerated this well was taken to orthopedic for postoperative. Postop patient progressed appropriately marked improvement of her leg symptoms. Pain well-controlled. Excellent strength testing. MILLICENT drain decreasing. Subsidy discharged home. Discharge orders instructions from the chart for further review. Total Time Total Time Spent Total Time Spent (In Minutes): 20 minutes Discharge Plan Discharge Items Patient Disposition: Home - Self-Care Reason For Visit: Spondylolisthesis Lumbar Region Discharge Diagnosis: Lumbar spondylolisthesis with radiculopathy Activity: As commented below Non-emergency contact: Primary Care Provider Call non-emergency contact if: you have any medication questions Follow-up/Referrals: Renato Blackmon DO [Primary Care Provider] - Diet: Regular Addtl Attending Provider Instructions: ACTIVITY RECOMMENDATIONS: SELF CARE INSTRUCTIONS AFTER THORACIC/LUMBAR FUSIONS 1. You may walk to your tolerance. It is good exercise for your legs and back. Expect some back and intermittent leg aches and pains. 2. You may perform "counter-top" level activities (make a sandwich, radha with a project, etc.). 3. No bending or lifting of more than 10 pounds or back twisting of any nature (roll like a log when turning in bed). 4. You may ride in a car for 20-30 minutes at a time. No driving until after your first visit with your doctor. 5. Frequent changes of position and restricting sitting to 30 minutes at a time will help limit the amount of back spasms and stiffness you may experience. 6. You may discontinue the use of ambulatory aids (cane, crutches, etc.) once your strength and confidence allow. 7. You may tours captain the shower and let water strike your incision when you a rrive home at least once daily. Do not take a tub bath, sit in a hot tub or go into a swimming pool until after your first recheck in the office. 8. You may resume previous diet. SPECIAL CARE INSTRUCTIONS: VERY IMPORTANT TO READ AND REVIEW A. Your surgical incision has been closed with a cosmetic suture under the skin that will dissolve in about 6 weeks. In 14 days, you can use a pair of clean scissors and cut the suture that is left outside of the skin at the ends of your incision. 1. The small skin tapes can be removed 7 days after surgery if they have not fallen off by that point. 2. You may keep the wound open to air as much as possible to promote healing after post-op day number 5 unless told otherwise by your doctor. 3. If you think the wound looks like it is becoming infected (redness or worsening drainage) and/or you are experiencing fever, chill or worsening back pain and muscle spasms, contact the office so that we may evaluate you as soon as possible. B. Complications are uncommon, but please contact us if you have any signs or symptoms of: 1. wound infection (fever higher than 102.5 degrees F, redness, separation of wound, drainage, or increasing pain from the incision) 2. blood clots in legs (pain, swelling, redness and warmth in legs) 3. urinary tract infection (fever higher than 102.5 degrees F, burning upon urination or increased frequency of urination) 4. nerve problems (inability to walk on your toes or heels, numbness, loss of bowel or bladder control) 5. any other symptoms that concern you C. Please call the office at if you have any concerns or questions about your operation or recovery. D. No smoking! Smoking drastically decreases the chance of a solid fusion. E. Do not take any anti-inflammatory medications (Indocin, Advil, Motrin, Aspirin, Naprosyn, etc.) as these may inhibit the chance of a solid fusion. Tylenol is okay to take for pain. MANAGING PAIN AFTER SPINAL SURGERY 1. Narcotic medication is intended for short-term use and will be provided for surgical pain. Surgical pain usually lasts for a period of 4-6 weeks. Narcotic medication includes Percocet, Vicodin, Darvocet, Tylenol #3 or Lortab. 2. Longer-term pain is more appropriately treated with non-narcotic medication such as Tylenol ES. 3. Muscle spasm is not appropriately treated with narcotics. Muscle relaxers such as Soma, Flexeril or Skelaxin can be used along with Tylenol ES. 4. Remember that we all live with some "aches and pains". This is not unusual or uncommon after an injury or as we get older. a. Back pain is expected and may include muscle spasms for 4 to 6 weeks after surgery. The pain should gradually improve. If the pain worsens for no apparent reason, please contact the office. b. Intermittent leg pain may also be experienced and should not be concerned about unless it worsens for no apparent reason. If so, please contact the office. 5. We will provide appropriate medication within the normal guidelines of their prescribed use. We will also be very cautious and aware of potential abuse and extended duration of patients' medication needs. a. Pain medications are for your comfort and to assist with sleep and rest so that the tissue can heal. They are not provided in order to return to normal activity and should not be used through the day. To do so or worsening pain at night can result from ongoing tissue damage and development of tolerance to the prescribed medicine. 6. Please allow 2-3 days to process refills. Prescriptions will not be mailed but must be picked up at the office. FOLLOW UP VISIT: Keep your scheduled follow-up appointment. Any questions, please call the office at . Pending Studies at Discharge: No Stand-Alone Forms: My Socrative, Smoking Cessation Medications and DC Order Prescriptions: New tramadol 50 mg tablet 50 mg PO Q6H PRN (Reason: pain, moderate) Qty: 30 0RF oxycodone 5 mg tablet 5 mg PO Q6H PRN (Reason: pain) Qty: 30 0RF Continued fexofenadine 180 mg Tablet 180 mg PO QAM losartan 25 mg Tablet 25 mg PO QAM gabapentin 300 mg Capsule 300 mg PO QAM Rx Instructions: Up to TID metoprolol tartrate 25 mg Tablet 25 mg PO QAM cholecalciferol (vitamin D3) [Vitamin D3] 125 mcg (5,000 unit) Tablet 250 mcg PO QAM Rx Instructions: Preop/Postop Discontinued meloxicam 15 mg Tablet 15 mg PO QAM Discharge Orders: Discharge Order (Routine); Ordered 02/10/25 Ordered By: Gaston Quintero Admission Data Admit Date/Time: 02/08/25 09:23 Attending Provider: Gaston Quintero Admit Provider: Gaston Quintero Primary Care Provider: Renato Blackmon Other Providers: Melvi Herrera
--- NOTE | 2025-02-10 12:31 | Hospitalist Progress Note ---
Date of Service February 10, 2025 Assessment & Plan Admission and Anticipated Discharge Date Admission Date: February 08, 2025 Results & Data Results & Data Vital Signs (Past 12 Hours) Vital Signs Temp Pulse Resp BP Pulse Ox O2 Del Method 02/10/25 12:30 Room Air 02/10/25 12:28 36.9 C 52 L 15 120/76 94 Room Air 02/10/25 09:43 Room Air 02/10/25 08:00 Room Air 02/10/25 07:39 36.7 C 60 15 135/80 94 Room Air 02/10/25 07:10 Room Air
[2025-02-10 12:33] VITALS: PULSE 52; TEMP 98.4
[2025-02-10 13:03] VITALS: BP 114/73
--- NOTE | 2025-02-10 18:39 | Communication Note ---
Date of Service: February 10, 2025 Attempted to see pt in the AM. Pt was in the bathroom. Pt later discharged before being seen on the day of discharge.
== END 2025-02-10 13:20 | disposition home or self-care (01) | DRG 402 ==
LOC: ASU 05:45 → 3E 09:23

== ENCOUNTER 2025-05-15 06:19 | Observation (INO) ==
--- NOTE | 2025-04-11 14:49 | PAT Medication Instructions ---
Medication Instructions Date of Service April 11, 2025 Home Medications Medication Instructions Recorded oxycodone 5 mg tablet 5 mg PO Q6H PRN pain #30 tabs 02/08/25 tramadol 50 mg tablet 50 mg PO Q6H PRN pain, moderate 02/08/25 #30 tabs Medication List: cholecalciferol (vitamin D3) 125 mcg (5,000 unit) tablet (Vitamin D3) 250 mcg PO QAM fexofenadine 180 mg tablet 180 mg PO QAM gabapentin 300 mg capsule 300 mg PO QAM losartan 25 mg tablet 25 mg PO QAM meloxicam 15 mg tablet 15 mg PO QAM metoprolol tartrate 25 mg tablet 25 mg PO QAM oxycodone 5 mg tablet 5 mg PO Q6H PRN pain tramadol 50 mg tablet 50 mg PO Q6H PRN pain, moderate MEDICATION INSTRUCTIONS: ASK your surgeon for instructions meloxicam 15 mg tablet 15 mg PO QAM DO NOT take the morning of surgery losartan 25 mg tablet 25 mg PO QAM cholecalciferol (vitamin D3) 125 mcg (5,000 unit) tablet (Vitamin D3) 250 mcg PO QAM fexofenadine 180 mg tablet 180 mg PO QAM Take morning of surgery With a small sip of water, OTHERWISE NOTHING TO EAT OR DRINK AFTER MIDNIGHT: metoprolol tartrate 25 mg tablet 25 mg PO QAM gabapentin 300 mg capsule 300 mg PO QAM oxycodone 5 mg tablet 5 mg PO Q6H PRN pain tramadol 50 mg tablet 50 mg PO Q6H PRN pain, moderate Take evening before surgery oxycodone 5 mg tablet 5 mg PO Q6H PRN pain tramadol 50 mg tablet 50 mg PO Q6H PRN pain, moderate Other Notes If you have any questions please call us at [phone] or [phone] or [phone] or [phone]
--- NOTE | 2025-04-19 13:21 | Anesthesiology Consultation ---
Date of Service April 19, 2025 Assessment & Plan (1) Encounter for pre-operative examination: Chart Review Chart Review: Acceptable Risk for Surgery (pending surgeon ordered PCP clearance ) and Patient seen in Pre Admission Testing - Awaiting PCP clearance 04/21/25 (Dr Renato Restrepo)- please fax previous EKG and CXR from 01/2025 to PCP per patient request along with 04/19/25 labs/UA Per PAT appt on 04/19/25, no recent illness/disease exposures, illness related symptoms, or recent illness/disease positive tests. Will leave to surgeon's discretion if preop Covid testing needed L5-S1 decompression and fusion 02/08/25= Done under [facility] with Grade 2 view with Glidescope #3. ETT #7.0. Teaching & Discussion Pre-Anesthesia Teaching/Discussion Notes: Instructed NPO after midnight before surgery,except medications with 15 cc of water. Medication instructions provided according to the PAT guidelines. History Surgery Operation Date: 05/15/25 11:25 Proposed Procedures p C4-C5 Anterior Cervical Discectomy and Fusion with Spinal Cord Monitoring - Gaston Quintero, Height/Weight Height: 5 ft 8 in Weight: 118.8 kg Allergies Allergy/AdvReac Type Severity Reaction Status Date / Time Surgical Glue Allergy Intermediate Swelling, Uncoded 04/07/25 11:13 Redness, Weeping of wound Medications Home Medications Medication Instructions Recorded Confirmed Last Taken cholecalciferol (vitamin D3) 125 250 mcg PO QAM 01/17/25 04/07/25 02/07/25 09:00 mcg (5,000 unit) tablet (Vitamin D3) fexofenadine 180 mg tablet 180 mg PO QAM 01/17/25 04/07/25 02/07/25 09:00 gabapentin 300 mg capsule 300 mg PO QAM 01/17/25 04/07/25 02/08/25 04:45 losartan 25 mg tablet 25 mg PO QAM 01/17/25 04/07/25 02/07/25 09:00 meloxicam 15 mg tablet 15 mg PO QAM 01/17/25 04/07/25 Unknown metoprolol tartrate 25 mg tablet 25 mg PO QAM 01/17/25 04/07/25 02/08/25 04:45 oxycodone 5 mg tablet 5 mg PO Q6H PRN pain #30 tabs 02/08/25 04/07/25 Unknown tramadol 50 mg tablet 50 mg PO Q6H PRN pain, moderate 02/08/25 04/07/25 Unknown #30 tabs Past Medical History Medical History Adverse effect of anesthesia "Slow to wake"- groggy- no hx of reintubation or ICU stay Headache "pain related" to cervical/lumbar area as per patient Hypertension Lumbosacral spondylolysis Seasonal allergies Exercise / Class Metabolic Activity II 4-5 Yardwork/Stairs/Walk up hill (one flight of stairs - no chest pain or SOB ) Past Surgical History Surgical History History of arthroscopy of left knee History of arthroscopy of left shoulder History of cervical spinal surgery (2022) hardware present - Painful ROM but not limited as per patient History of lumbar fusion (02/08/25) L5-S1 decompression and fusion Hx of gastric bypass Hx of hysterectomy Hx of tubal ligation Hx of wisdom tooth extraction Past Anesthesia History No Hx of Anesthesia Complications (with exception to slow to wake- no reintubation or ICU stay- did well with 01/2025 lumbar surgery ) and No Family Hx of Anesthesia Complications History of PONV No Hx of PONV and Hx of Motion Sickness Social History Smoking Status: Never smoker Do You Dip or Chew Tobacco: No Hx Alcohol Use: Yes Alcohol type: beer alcohol intake frequency: a few times a week Alcohol Intake Frequency Comment: social Hx Substance Use: No substance use type: does not use Review of Systems - Hx of snoring - no hx of sleep study Patient denies chest pain, shortness of breath, dyspnea on exertion, reflux, cough, wheezing, palpitations. No hx of seizures, stroke, [place]. No hx of blood clots or blood transfusions Physical Exam Vital Signs VITALS BP 138/85 P 63 TEMP 98.3 SP02 96% RESP 16 Constitutional no acute distress ENMT Mouth: no TMJ clicking Thyromental Distance: > or= 3.5 Finger Breadths (3.5) Mallampati Class: III Missing molar Neck + limited neck extension (mild) Respiratory normal respiratory effort; no respiratory distress Auscultation: lungs clear to auscultation bilaterally; no wheezes Cardiovascular Rate/Rhythm: regular rate and regular rhythm Heart Sounds: no murmur Vessels: no carotid bruit Musculoskeletal Spine: + pain with cervical ROM Extremities: extremities normal to inspection Psychiatric Orientation: alert Lab Results Anesthesia Preop Results Results Anesthesia Widget: WBC 5.87 K/ul (4.8-10.8) 04/19/25 Hgb 12.1 g/dl (12.0-16.0) 04/19/25 Hct 36.0 % (37.0-47.0) L 04/19/25 Plt 240 K/uL (130-400) 04/19/25 Na 135 mmol/L (136-145) L 04/19/25 K 4.1 mmol/L (3.5-5.1) 04/19/25 Cl 100 mmol/L (98-107) 04/19/25 CO2 28 mmol/L (21-32) 04/19/25 BUN 6 mg/dl (6-23) 04/19/25 Creat 0.56 mg/dl (0.6-1.2) L 04/19/25 Glucose Level 108 mg/dl (70-99(Fasting)) H 04/19/25 PT 11.0 Seconds (9.0-12.0) 04/19/25 PTT 25 Seconds (21-31) 04/19/25 INR 1.0 (0.9-1.1) 04/19/25 Urine Color Yellow 04/19/25 Urine Appearance Clear (Clear) 04/19/25 Urine pH 5.5 (4.5-7.5) 04/19/25 Urine Specific [place] 1.006 (1.000-1.030) 04/19/25 Urine Protein Negative (Negative) 04/19/25 Urine Glucose (UA) Negative (Negative) 04/19/25 Urine Ketones Negative (Negative) 04/19/25 Urine Blood Negative (Negative) 04/19/25 Urine Nitrite Negative (Negative) 04/19/25 Urine Bilirubin Negative (Negative) 04/19/25 Urine Urobilinogen Negative (Negative) 04/19/25 Urine Leukocyte Esterase Negative (Negative) 04/19/25 Blood Type A Positive 04/19/25 Antibody Screen NEGATIVE 04/19/25 Testing Electrocardiogram Date: 01/24/25 Findings: + NSR @ (72bpm) Nonspecific ST abnormality Chest X-Ray Date: 01/24/25 Findings: + NAD
[2025-05-15] MEDS: CeleBREX 200 MG CAP PO SCH (06:34)
[2025-05-15] MEDS: LR 60ML/HR IV SCH (06:34)
[2025-05-15] MEDS: ACETAMINOPHEN 500 MG TAB PO SCH (06:34)
[2025-05-15] MEDS: GABAPENTIN 900 MG DOSE PO SCH (06:34)
[2025-05-15] MEDS ORDERED: ONDANSETRON INJ 2 MG/ML 2 ML VIAL ONE (07:09)
[2025-05-15] MEDS ORDERED: PROPOFOL IV EMULSION 10 MG/ML 20 ML VIAL IV ONE (07:09)
[2025-05-15] MEDS ORDERED: ROCURONIUM BROMIDE 10 MG/ML 5 ML VIAL IV ONE ×2 (07:09→08:24)
[2025-05-15] MEDS ORDERED: DEXAMETHASONE SOD INJ 4 MG/ML VIAL ONE (07:09)
[2025-05-15] MEDS ORDERED: LIDOCAINE 2% 2 ML VIAL/AMP(20MG/ML) INFIL ONE ×2 (07:09→08:48)
[2025-05-15] MEDS ORDERED: MIDAZOLAM HCL 1 MG/ML 2ML VIAL ONE (07:09)
[2025-05-15] MEDS ORDERED: LABETALOL HCL IV 5 MG/ML 20ML IV PRN (07:16)
[2025-05-15] MEDS ORDERED: ATROPINE SULFATE 0.1 MG/ML 10ML SYR IV PRN (07:16)
[2025-05-15] MEDS ORDERED: HYDROmorphone INJ 2 MG/ML SYR/VIAL IV PRN (07:16)
[2025-05-15] MEDS ORDERED: ONDANSETRON INJ 2 MG/ML 2 ML VIAL IV PRN ×2 (07:16→11:11)
--- NOTE | 2025-05-15 07:19 | Anesthesiology Consultation ---
Date of Service May 15, 2025 Assessment & Plan Chart Review Chart Review: Acceptable Risk for Surgery Consults Requested none ASA ASA3 Proposed Anesthesia Anesthesia Type: General History Surgery Operation Date: 05/15/25 07:45 Proposed Procedures p C4-C5 Anterior Cervical Discectomy and Fusion, Spinal Cord Monitoring - Gaston Quintero DO Height/Weight Height: 5 ft 8 in Weight: 116.3 kg Allergies Allergy/AdvReac Type Severity Reaction Status Date / Time Surgical Glue Allergy Intermediate Swelling, Uncoded 05/15/25 06:17 Redness, Weeping of wound Medications Home Medications Medication Instructions Recorded Confirmed Last Taken cholecalciferol (vitamin D3) 125 250 mcg PO QAM 01/17/25 05/15/25 05/14/25 10:00 mcg (5,000 unit) tablet (Vitamin D3) fexofenadine 180 mg tablet 180 mg PO QAM 01/17/25 05/15/25 05/14/25 10:00 gabapentin 300 mg capsule 300 mg PO QAM 01/17/25 05/15/25 05/14/25 10:00 losartan 25 mg tablet 25 mg PO QAM 01/17/25 05/15/25 05/14/25 10:00 meloxicam 15 mg tablet 15 mg PO QAM 01/17/25 05/15/25 1 Week Ago ~05/08/25 metoprolol tartrate 25 mg tablet 25 mg PO QAM 01/17/25 05/15/25 05/14/25 10:00 oxycodone 5 mg tablet 5 mg PO Q6H PRN pain #30 tabs 02/08/25 05/15/25 Unknown tramadol 50 mg tablet 50 mg PO Q6H PRN pain, moderate 02/08/25 05/15/25 Unknown #30 tabs Active Medications Generic Name Dose Route Start Last Admin Trade Name Freq PRN Reason Stop Dose Admin Acetaminophen 1,000 mg 05/15/25 06:00 05/15/25 06:34 Acetaminophen 500 Mg Tab PO 05/15/25 18:00 1,000 mg PREOP FERNANDO Administration Celecoxib 200 mg 05/15/25 06:00 05/15/25 06:34 Celebrex 200 Mg Cap PO 05/15/25 18:00 200 mg PREOP FERNANDO Administration Gabapentin 900 mg 05/15/25 06:00 05/15/25 06:34 Gabapentin 900 Mg Dose PO 05/15/25 18:00 900 mg PREOP FERNANDO Administration Lactated Ringer's 1,000 mls @ 60 mls/hr 05/15/25 06:00 05/15/25 06:34 Lr IV 05/15/25 22:39 Not Given .[id number] FERNANDO NPO Date Last Intake of Fluids: 05/14/25 Time Last Intake of Fluids: 22:30 Date Last Intake of Solids: 05/14/25 Time Last Intake of Solids: 19:00 Past Medical History Medical History Seasonal allergies Lumbosacral spondylolysis Headache "pain related" to cervical/lumbar area as per patient Hypertension Adverse effect of anesthesia "Slow to wake"- groggy- no hx of reintubation or ICU stay Exercise / Class Metabolic Activity II 4-5 Yardwork/Stairs/Walk up hill Past Surgical History Surgical History History of lumbar fusion (02/08/25) L5-S1 decompression and fusion Hx of wisdom tooth extraction History of arthroscopy of left knee History of arthroscopy of left shoulder Hx of gastric bypass Hx of hysterectomy Hx of tubal ligation History of cervical spinal surgery (2022) hardware present - Painful ROM but not limited as per patient Past Anesthesia History No Hx of Anesthesia Complications History of PONV No Hx of PONV Social History Smoking Status: Never smoker Do You Dip or Chew Tobacco: No Hx Alcohol Use: Yes Alcohol type: beer alcohol intake frequency: a few times a week Alcohol Intake Frequency Comment: social Hx Substance Use: No substance use type: does not use Review of Systems ROS Unobtainable: All systems reviewed & are unremarkable except as noted in HPI & below Physical Exam Vital Signs Last Vital Signs Temp 36.7 C 05/15/25 06:35 Pulse 89 05/15/25 06:35 Resp 20 05/15/25 06:35 BP 182/102 H 05/15/25 06:35 Pulse Ox 99 05/15/25 06:35 O2 Del Method Room Air 05/15/25 06:35 Constitutional no acute distress ENMT Thyromental Distance: > or= 3.5 Finger Breadths Mallampati Class: II Neck normal visual inspection and + thick neck Respiratory normal respiratory effort Auscultation: lungs clear to auscultation bilaterally Cardiovascular Rate/Rhythm: regular rate and regular rhythm Musculoskeletal Spine: + limited cervical ROM (pain) Neurologic moves all extremities Testing Electrocardiogram Date: 01/24/25 Findings: + NSR @ (72bpm) Nonspecific ST abnormality Chest X-Ray Date: 01/24/25 Findings: + NAD
[2025-05-15] MEDS: LR 15ML/HR IV SCH (07:28)
--- NOTE | 2025-05-15 07:45 | History & Physical Bridge Note ---
Date of Service May 15, 2025 History & Physical Bridge Note I have examined the patient, reviewed the History & Physical and in the interval since the performance of the History & Physical I have noted the following changes of clinical significance: no changes noted
--- NOTE | 2025-05-15 07:47 | History & Physical Report ---
Date of Service May 15, 2025 Assessment & Plan (1) Cervical spondylosis with radiculopathy: Plan: Anterior cervical discectomy and fusion C4-C5 History of Present Illness Chief Complaint: Neck and arm pain Primary Care Provider: Renato Blackmon DO This is a 50-year-old female well-known to me presents with persistent neck and arm pain and failing course of nonoperative care is here for surgical invention. Allergies Allergy/AdvReac Type Severity Reaction Status Date / Time Surgical Glue Allergy Intermediate Swelling, Uncoded 05/15/25 06:17 Redness, Weeping of wound Home Medications Medication Instructions Recorded Confirmed Type cholecalciferol (vitamin D3) 125 250 mcg PO QAM 01/17/25 05/15/25 History mcg (5,000 unit) tablet (Vitamin D3) fexofenadine 180 mg tablet 180 mg PO QAM 01/17/25 05/15/25 History gabapentin 300 mg capsule 300 mg PO QAM 01/17/25 05/15/25 History losartan 25 mg tablet 25 mg PO QAM 01/17/25 05/15/25 History meloxicam 15 mg tablet 15 mg PO QAM 01/17/25 05/15/25 History metoprolol tartrate 25 mg tablet 25 mg PO QAM 01/17/25 05/15/25 History oxycodone 5 mg tablet 5 mg PO Q6H PRN pain #30 tabs 02/08/25 05/15/25 Rx tramadol 50 mg tablet 50 mg PO Q6H PRN pain, moderate 02/08/25 05/15/25 Rx #30 tabs Past Med/Surg History Problem List (Updated 05/15/25 @ 07:47 by Gaston Qiuntero DO) Cervical spondylosis with radiculopathy Encounter for pre-operative examination Lumbosacral spondylosis with radiculopathy Medical History Seasonal allergies Lumbosacral spondylolysis Headache "pain related" to cervical/lumbar area as per patient Hypertension Adverse effect of anesthesia "Slow to wake"- groggy- no hx of reintubation or ICU stay Surgical History History of lumbar fusion (02/08/25) L5-S1 decompression and fusion Hx of wisdom tooth extraction History of arthroscopy of left knee History of arthroscopy of left shoulder Hx of gastric bypass Hx of hysterectomy Hx of tubal ligation History of cervical spinal surgery (2022) hardware present - Painful ROM but not limited as per patient Social History Smoking Status: Never smoker Second Hand Exposure: No; Do You Dip or Chew Tobacco: No; Tobacco Cessation Education Requested by Patient: No Hx Alcohol Use: Yes Alcohol type: beer Hx Substance Use: No Preferred Language: Chinese Communication Ability: Effective Razor Sharpener Required: No Beliefs That Will Affect Care: None Current Living Situation: Spouse Other Information That Helps Us Care for You: No Feels Safe at Home: Yes Safety Concerns: Feels Safe At This Time Assistive Devices: Glasses Physical Exam Physical Exam: Patient is alert and oriented Heart regular in rhythm Lungs clear Results & Data Results & Data Vital Signs (Past 12 Hours) Vital Signs Temp Pulse Resp BP Pulse Ox O2 Del Method 05/15/25 06:35 36.7 C 89 20 182/102 H 99 Room Air
[2025-05-15] MEDS ORDERED: SUGAMMADEX SODIUM 200 MG/2 ML VIAL IV ONE (08:38)
[2025-05-15] MEDS: ceFAZolin 330 MG/ML 1 GM VIAL ONE (08:45)
[2025-05-15] MEDS ORDERED: PHENYLEPHRINE 100MCG/ML 5ML SYR ONE (09:04)
--- NOTE | 2025-05-15 09:22 | Operative Report ---
Post Operative Report Pre & Post Diagnosis Operation Date: 05/15/25 07:45 Pre-Op Diagnosis: #1 cervical disc herniation with radiculopathy Post-Op Diagnosis: Same I identified the patient and participated in the time-out.: Yes Procedure Operation Date: 05/15/25 07:45 Actual Procedures #1 anterior cervical discectomy with bilateral foraminotomies C4-C5. #2 anterior cervical arthrodesis C4-C5. #3 placement of Spira stand-alone cage 8 mm in height filled with os design bone graft at C4-C5. Surgeon Gaston Quintero, DO Speech Instructor None Estimated Blood Loss 25 Findings See Below The patient is 5 foot 8 weighing over 116 kg with BMI of 39. The patient's body habitus did contribute to significant technical difficulty with positioning exposure and the procedure itself and at least 50% increased operative time. Specimens None Indications This is a 50-year-old female presents publish diagnosis of failed course of nonoperative care is here for surgical invention. Description of Procedure Patient was met with identified informed consent obtained. Patient was then taken to the operative suite underwent intubation placed in a supine position the Tyson table that [place] head ordered. All bony prominences well-padded eyes inspected to ensure no external pressure placed upon them. This point the anterior cervical spine was prepped and draped in normal sterile fashion. The assistance of fluoroscopy identified the C4-5 disc space and a transverse incision was placed on the right anterior aspect of the cervical spine overlying this region. Blunt dissection with the assistance of bipolar electrocautery is then performed down to exposing the anterior cervical spine at C4-C5. Self- retaining retractors placed. Informed complete discectomy of C4-C5 out to the ankle vertebral joints bilaterally. This included removal of all posterior keith lar fibers longitudinal ligament and bilateral foraminotomies. Endplates produced a cortical bleeding bone and an 8 mm Spira cage filled with os design bone graft tapped into position and screwed into place. Incision was then copiously irrigated explored to ensure no damage to surrounding structures or remaining bleeding. 10 round MILLICENT drain inserted. The incision was then closed with 2 Vicryl in the fascia and 4 Monocryl for final skin closure. Steri-Strips sterile dressing placed. Patient waken taken to PACU in stable condition. Please note spinal cord monitoring visualized at the procedure no changes noted. Im ordering 10 grams of Collagen Powder ([facility] A6010 Primary Dressing) and 10 bordered super absorbent ([facility] A6196 Secondary Dressing) to treat an incision wound that was caused by a spine procedure. The incision is approximately 2 cm(W) x 4 cm(L) down to the spinal column and epidural space 2 cm (D) in size and is a full thickness wound showing no signs of infection. Collagen comes in 1 gram packets so 10 packets were ordered. Given the size of the wound, with moderate exudate I chose to order a 10 day supply. The patient will be provided instructions for proper application of the collagen wound kit. The patient will be asked to apply the collagen powder daily and then cover it with sterile dressings dispensed. Collagen was selected as I expect the collagen to attract monocytes and fibroblasts, act as a sacrificial substrate for MMPs, and ultimately proved a matrix for tissue and vessel growth. The collagen will act as a primary dressing in this scenario. It is medically necessary for proper healing of these wounds to improve bioavailability and contact with each wound surface, this is also to help prevent infection of wounds and promote healing ul timately leading to a better healing outcome and limit the risk of infection. I attest to the content of the Intraoperative Record and any orders documented therein. Any exceptions are noted below.
--- NOTE | 2025-05-15 10:03 | Fluoroscopy Report ---
INTRAOPERATIVE RADIOGRAPHS CLINICAL HISTORY: Cervical spinal fusion surgery. Fluoro time: 11 seconds Ka,r: 1.49 mGy FINDINGS: 2 spot fluoroscopic views of the cervical spine are presented. Correlation is made with [facility] x-ray 01/24/2025. There is postsurgical change from discectomy at C4-C5 with anterior fusion at thi s level. There has also been prior discectomy at C6-C7 and C7-T1 with anterior fusion at C6-T1. This was also seen on the 01/24/2025 chest x-ray. The arthritic hardware appears intact. An endotracheal tu be is in place. IMPRESSION: Intraoperative images from cervical spine fusion surgery as above. Electronically signed by: Fred Burrell M.D. 05/15/2025 10:02 AM
[2025-05-15] MEDS: HYDROmorphone INJ 1 MG/ML SYRINGE IV PRN ×2 (10:12→15:05)
[2025-05-15] MEDS ORDERED: diphenhydrAMINE Capsule 25 MG CAP PO PRN (11:11)
[2025-05-15] MEDS ORDERED: ACETAMINOPHEN 1,000 MG/100 ML VIAL IV PRN (11:11)
[2025-05-15] MEDS ORDERED: LORazepam 0.5 MG TAB PO PRN (11:11)
[2025-05-15] MEDS ORDERED: ACETAMINOPHEN 500 MG TAB PO PRN (11:11)
[2025-05-15] MEDS ORDERED: ALUMINUM/MAGNESIUM SUSP 30 ML UDC PO PRN (11:11)
[2025-05-15] MEDS ORDERED: RACEPINEPHRINE 2.25% NEBU SOLN 0.5 ML VIAL INH PRN (11:11)
[2025-05-15] MEDS ORDERED: METOCLOPRAMIDE HCL INJ 5 MG/ML 2 ML VIAL IV PRN (11:11)
[2025-05-15] MEDS ORDERED: PROMETHAZINE 12.5 MG/50.5 ML BAG IV PRN (11:11)
[2025-05-15] MEDS ORDERED: NALOXONE HCL 0.4 MG/1 ML VIAL/CARP IV PRN (11:11)
[2025-05-15] MEDS ORDERED: SOD PHOSPHATE/SOD BIPHOSPHATE ENEMA 132 ML BTL PR PRN (11:11)
[2025-05-15] MEDS ORDERED: DO NOT ADMINISTER PNEUMOCOCCAL VACCINE PRN (11:11)
[2025-05-15] MEDS ORDERED: DO NOT ADMINISTER FLU VACCINE PRN (11:11)
[2025-05-15] MEDS ORDERED: FAMOTIDINE 20 MG TAB PO PRN (11:11)
[2025-05-15] MEDS ORDERED: dexAMETHasone 8 MG in SYRINGE 0 ML IV PRN (11:11)
[2025-05-15] MEDS ORDERED: HYDROmorphone INJ 0.5 MG/0.5 ML SYR IV PRN (11:11)
[2025-05-15] MEDS ORDERED: MAGNESIUM HYDROXIDE SUSP 30 ML UDC PO PRN (11:11)
--- NOTE | 2025-05-15 11:16 | Anesthesiology Progress Note ---
Date of Service May 15, 2025 Anesthesia Post Procedure Vital Signs Vital Signs: Temp Pulse Pulse Resp BP Pulse Ox O2 Del Method 05/15/25 11:00 36.6 C 82 18 147/93 H 94 Room Air 05/15/25 10:50 75 14 154/92 H 93 Nasal Cannula 05/15/25 10:40 36.7 C 80 13 139/93 92 Room Air 05/15/25 10:30 84 16 123/97 91 Room Air 05/15/25 10:20 86 24 153/98 H 92 Oxymask 05/15/25 10:10 84 21 150/98 H 93 Oxymask 05/15/25 10:00 84 15 156/96 H 94 Oxymask 05/15/25 09:50 90 19 156/101 H 96 Oxymask 05/15/25 09:40 95 H 17 161/108 H 95 Oxymask 05/15/25 09:33 36.2 C L 101 H 19 169/105 H 95 Oxymask 05/15/25 06:35 36.7 C 89 20 182/102 H 99 Room Air O2 Flow Rate 05/15/25 11:00 05/15/25 10:50 2 05/15/25 10:40 05/15/25 10:30 05/15/25 10:20 2 05/15/25 10:10 2 05/15/25 10:00 2 05/15/25 09:50 4 05/15/25 09:40 4 05/15/25 09:33 4 05/15/25 06:35 Pain Intensity Neck: Pain Intensity: 5 Transfer of Care Handoff Completed per policy Notes Mental Status: alert / awake / arousable Patient Amnestic to Procedure: Yes Nausea / Vomiting: adequately controlled Pain: adequately controlled Airway Patency, RR, SpO2: stable & adequate BP & HR: stable & adequate Hydration State: stable & adequate Anesthetic Complications: no major complications apparent and Pt Satisfied with anesthetic care Notes: Moves all ext, min pain now
--- NOTE | 2025-05-15 11:27 | Consultation ---
Date of Consultation May 15, 2025 Assessment & Plan (1) Cervical spondylosis with radiculopathy: -POD 0 for cervical decompression and fusion -MILLICENT drain placed, no immediate post operative complications -more complex procedure per operative note due to body habitus Plan: -monitor Hgb, WBC, and creatinine post op -incentive spirometry ordered -pain control, DVT prophylaxis per ortho -check CBC/BMP post op and daily -PT/OT per ortho (2) Lumbosacral spondylosis with radiculopathy: -s/p lumbar decompression and fusion in 02/2025 (3) Hypertension: -restart home losartan and metoprolol post op -restarted today due to HTN Plan I spent a total of 50 minutes in direct patient care, including [id number] time with the patient and/or family, reviewing medical records, ordering and reviewing diagnostic tests, and coordinating care with other healthcare providers. This time includes: history taking, physical examination, medical decision making, counseling, ECG interpretation, imaging interpretation, lab interpretation, orders, and education, excluding time spent in the performance of separately billed services. History of Present Illness Requesting Physician: Dr. Quintero Reason for Consultation: -medical management Attending Physician: Gaston Quintero, DO History of Present Illness 50 yo female with pmhx of class II obesity, allergic rhinitis, cervical/lumbar spondylosis with radiculopathy who medicine is consulted for post operative medical management. Last admission was in 02/2025 for lumbar spondylosis with radiculopathy s/p decompression and fusion with improvement in symptoms. Admitted by ortho spine for failed outpatient management of cervical spine pain. Operative course complex due to large body habitus but no immediate post operative complications. Patient seen and examined at bedside. at bedside as well. Patient doing well post operatively. Has a small amount of pain in cervical spine around surgical site. Otherwise no other symptoms, no nausea, vomiting, diarrhea, chest pain, SOB. States she gets nausea/dry heaves with opioids. Allergies Allergy/AdvReac Type Severity Reaction Status Date / Time Surgical Glue Allergy Intermediate Swelling, Uncoded 05/15/25 06:17 Redness, Weeping of wound Home Medications Medication Instructions Recorded Confirmed Type cholecalciferol (vitamin D3) 125 250 mcg PO QAM 01/17/25 05/15/25 History mcg (5,000 unit) tablet (Vitamin D3) fexofenadine 180 mg tablet 180 mg PO QAM 01/17/25 05/15/25 History gabapentin 300 mg capsule 300 mg PO QAM 01/17/25 05/15/25 History losartan 25 mg tablet 25 mg PO QAM 01/17/25 05/15/25 History meloxicam 15 mg tablet 15 mg PO QAM 01/17/25 05/15/25 History metoprolol tartrate 25 mg tablet 25 mg PO QAM 01/17/25 05/15/25 History oxycodone 5 mg tablet 5 mg PO Q6H PRN pain #30 tabs 02/08/25 05/15/25 Rx tramadol 50 mg tablet 50 mg PO Q6H PRN pain, moderate 02/08/25 05/15/25 Rx #30 tabs oxycodone 5 mg tablet 5 mg PO Q6H PRN pain #30 tabs 05/15/25 Rx tramadol 50 mg tablet 50 mg PO Q6H PRN pain, moderate 05/15/25 Rx #30 tabs Patient History Medical History (Updated 05/15/25 @ 07:47 by Gaston Quintero DO) Seasonal allergies Lumbosacral spondylolysis Headache "pain related" to cervical/lumbar area as per patient Hypertension Adverse effect of anesthesia "Slow to wake"- groggy- no hx of reintubation or ICU stay Surgical History History of lumbar fusion (02/08/25) L5-S1 decompression and fusion Hx of wisdom tooth extraction History of arthroscopy of left knee History of arthroscopy of left shoulder Hx of gastric bypass Hx of hysterectomy Hx of tubal ligation History of cervical spinal surgery (2022) hardware present - Painful ROM but not limited as per patient Social History Smoking Status: Never smoker Second Hand Exposure: No; Do You Dip or Chew Tobacco: No; Tobacco Cessation Education Requested by Patient: No Hx Alcohol Use: Yes Alcohol type: beer Hx Substance Use: No Preferred Language: Greenlandic Communication Ability: Effective Historical Records Administrator Required: No Beliefs That Will Affect Care: None Current Living Situation: Spouse Other Information That Helps Us Care for You: No Feels Safe at Home: Yes Safety Concerns: Feels Safe At This Time Assistive Devices: Glasses Review of Systems Review of Systems: -negative unless listed above Physical Exam Physical Exam: Gen: A&O 3 NAD HEENT: NCAT, EOMI, not icteric. External ears normal. No rhinorrhea. Moist mucous membranes. Neck: C collar on, wound site with bandage on anterior side Lungs: No Respiratory distress. CV: RRR, no edema. Abdomen: Soft, nondistended, No rebound tenderness. MSK: No joint swelling, no redness. Skin: No rashes, petechiae, lesions. Normal color per patient. Neuro: Normal Gait, Grossly intact. Psych: Appropriate for situation. Results & Data Vital Signs (Past 12 Hours) Vital Signs Temp Pulse Pulse Resp BP Pulse Ox Pulse Ox 05/15/25 11:18 89 16 93 05/15/25 11:11 94 05/15/25 11:00 36.6 C 82 18 147/93 H 94 05/15/25 10:50 75 14 154/92 H 93 05/15/25 10:40 36.7 C 80 13 139/93 92 05/15/25 10:30 84 16 123/97 91 05/15/25 10:20 86 24 153/98 H 92 05/15/25 10:10 84 21 150/98 H 93 05/15/25 10:00 84 15 156/96 H 94 05/15/25 09:50 90 19 156/101 H 96 05/15/25 09:40 95 H 17 161/108 H 95 05/15/25 09:33 36.2 C L 101 H 19 169/105 H 95 05/15/25 06:35 36.7 C 89 20 182/102 H 99 O2 Del Method O2 Del Method O2 Flow Rate 05/15/25 11:18 Room Air 05/15/25 11:11 Room Air 05/15/25 11:00 Room Air 05/15/25 10:50 Nasal Cannula 2 05/15/25 10:40 Room Air 05/15/25 10:30 Room Air 05/15/25 10:20 Oxymask 2 05/15/25 10:10 Oxymask 2 05/15/25 10:00 Oxymask 2 05/15/25 09:50 Oxymask 4 05/15/25 09:40 Oxymask 4 05/15/25 09:33 Oxymask 4 05/15/25 06:35 Room Air Medications Administered Gabapentin (Gabapentin 900 Mg Dose) 900 mg PO PREOP FERNANDO Stop: 05/15/25 18:00 Last Admin: 05/15/25 06:34 Dose: 900 mg Documented By: HBJess Lactated Ringer's (Lr) 1,000 mls @ 60 mls/hr IV .[id number] FERNANDO Stop: 05/15/25 22:39 Last Admin: 05/15/25 06:34 Dose: Not Given Documented By: EM Cefazolin Sodium (Ancef 2000mg) 2,000 mg in 15 mls @ 3.75 mls/min IV PREOP FERNANDO; Protocol Stop: 05/15/25 18:00 Last Admin: 05/15/25 08:03 Dose: 3.75 mls/min Documented By: MARY
[2025-05-15] MEDS: LOSARTAN POTASSIUM 25 MG TAB PO SCH (12:41)
[2025-05-15] MEDS: METOPROLOL TARTRATE 25 MG TAB PO SCH (12:41)
[2025-05-15 13:24] LABS: Hematocrit (blood only) 35.1 % (37.0-47.0); Hemoglobin 11.5 g/dl (12.0-16.0); Mean Corpuscular Hemoglobin 29.3 pg (25.0-34.0); Mean Corpuscular Volume 89.5 fL (80.0-100.0); Platelet Count 230 K/uL (130-400); RDW Standard Deviation 41.8 fL (36.4-46.3); Red Blood Count 3.92 M/uL (4.20-5.40); White Blood Count 5.68 K/ul (4.8-10.8)
[2025-05-15 13:44] LABS: Anion Gap 12.0 (3-11); Blood Urea Nitrogen 7.0 mg/dl (6-23); Calcium 8.3 mg/dl (8.6-10.3); Carbon Dioxide 23.0 mmol/L (21-32); Chloride 98.0 mmol/L (98-107); Creatinine Clr Calc Pharmacy 124.9 ml/min; Glucose 300.0 mg/dl (70-99(Fasting)); Potassium 3.8 mmol/L (3.5-5.1); Sodium 133.0 mmol/L (136-145)
[2025-05-15] MEDS ORDERED: GLUCOSE 40% GEL 15 GM TUBE PO PRN (18:32)
[2025-05-15] MEDS ORDERED: GLUCAGON FOR INJ 1 MG VIAL SQ PRN (18:32)
[2025-05-15] MEDS ORDERED: DEXTROSE 50% 50 ML SYRINGE IV PRN (18:32)
[2025-05-15] MEDS ORDERED: CARBOHYDRATES FOR HYPOGLYCEMIA PO PRN (18:32)
[2025-05-15] MEDS ORDERED: GLUCOSE 10 TAB/TUBE PO PRN (18:32)
[2025-05-15] MEDS: ONDANSETRON 4 MG OD TAB PO PRN (19:22)
[2025-05-15] MEDS: DOCUSATE SODIUM/SENNA 50/8.6MG TAB PO SCH (20:07)
[2025-05-15] MEDS: INSULIN ASPART PER UNIT CHARGE SC SCH (21:04)
[2025-05-15 23:30] VITALS: RESP 16
[2025-05-16] MEDS: POLYETHYLENE (MIRALAX) 17 GM PACK PO SCH (05:18)
[2025-05-16 07:28] VITALS: BP 130/87; PULSE 75; TEMP 97.7; O2SAT 94
[2025-05-16 07:33] LABS: Hematocrit (blood only) 34.6 % (37.0-47.0); Hemoglobin 11.1 g/dl (12.0-16.0); Mean Corpuscular Hemoglobin 28.3 pg (25.0-34.0); Mean Corpuscular Volume 88.3 fL (80.0-100.0); Platelet Count 244 K/uL (130-400); RDW Standard Deviation 41.5 fL (36.4-46.3); Red Blood Count 3.92 M/uL (4.20-5.40); White Blood Count 11.15 K/ul (4.8-10.8)
--- NOTE | 2025-05-16 07:44 | Hospitalist Progress Note ---
Date of Service May 16, 2025 Assessment & Plan (1) Cervical spondylosis with radiculopathy: Plan: POD 1 for cervical decompression and fusion, more complex procedure per operative note due to body habitus Per ortho for pain control, wound care, anticoagulation and activities Monitor H&H - post ob hgb stable at 11.1 (from 11.5), VSS Continue incentive spirometry, PT/OT when appropriate (2) Lumbosacral spondylosis with radiculopathy: Plan: S/p lumbar decompression and fusion in 02/2025 (3) Hypertension: Plan: Resumed home losartan and metoprolol post op, BP normotensive this AM at 130/87 (4) Hyperglycemia: Plan: Post op glucose >300 in setting of IV steroids. SSI added, BSG 140 this AM No known DM dx - recommend PCP follow up and a1c once recovered from surgery. Discussed this with patient as well Care coordinated with Dr. Lebron. I spent a total of 40 minutes coordinating, documenting, and providing care for this patient excluding time spent in the performance of separately billed services or time spent by another provider/QHP. Admission and Anticipated Discharge Date Admission Date: May 15, 2025 Supervising Physician Co-Signing Physician Notes Patient seen and examined Agree with findings and plans as detailed by Sonya Garcia PA-C Subjective Seen and examined in 302. Feeling well today, minimal surgical site pain. No pain or numbness of BUE. No F/C, lightheadedness, CP, SOB, N/V, abd pain, dysuria, passing post-op flatus. Review of Systems Review of Systems: At least ten systems reviewed and negative except as noted in the HPI. Physical Exam Physical Exam: Gen: WD/WN, NAD, resting in bed comfortably, A&Ox3, obese HEENT: Normocephalic, atraumatic, C- collar in place, anterior dressing c/d/i, MILLICENT drain with minimal output Lung: Clear to Auscultation bilaterally Heart: Regular rate, regular rhythm Abdomen: Soft, NT, ND +BS x 4 Extremities: no edema Skin: Warm, no rash Results & Data Results & Data Vital Signs (Past 12 Hours) Vital Signs Temp Pulse Resp BP Pulse Ox O2 Del Method O2 Flow Rate 05/16/25 07:27 36.5 C 75 16 130/87 94 Room Air 05/16/25 05:00 36.6 C 66 16 129/79 95 Room Air 05/16/25 03:14 74 16 99 Nasal Cannula 2 05/16/25 03:00 36.6 C 83 16 132/86 97 Nasal Cannula 2 05/16/25 01:00 36.6 C 73 16 125/79 97 Nasal Cannula 2 05/15/25 23:35 67 96 Nasal Cannula 2 05/15/25 23:00 68 16 93 Nasal Cannula 1.5 05/15/25 22:58 36.5 C 60 14 122/83 95 Nasal Cannula 2 05/15/25 21:00 36.5 C 65 16 116/80 94 Room Air Laboratory Results Short CBC 05/15/25 05/16/25 Range/Units 13:05 07:00 WBC 5.68 11.15 H (4.8-10.8) K/ul Hgb 11.5 L 11.1 L (12.0-16.0) g/dl Hct 35.1 L 34.6 L (37.0-47.0) % Plt Count 230 244 (130-400) K/uL BMP 05/15/25 13:05 Sodium 133 L Potassium 3.8 Chloride 98 Carbon Dioxide 23 BUN 7 Creatinine 0.73 Glucose 300 H Calcium 8.3 L Diagnostic Findings Cervical Spine X-Ray 05/15/25 00:00 INTRAOPERATIVE RADIOGRAPHS CLINICAL HISTORY: Cervical spinal fusion surgery. Fluoro time: 11 seconds Ka,r: 1.49 mGy FINDINGS: 2 spot fluoroscopic views of the cervical spine are presented. Correlation is made with chest x-ray 01/24/2025. There is postsurgical change from discectomy at C4-C5 with anterior fusion at this level. There has also been prior discectomy at C6-C7 and C7-T1 with anterior fusion at C6-T1. This was also seen on the 01/24/2025 chest x-ray. The arthritic hardware appears intact. An endotracheal tube is in place. IMPRESSION: Intraoperative images from cervical spine fusion surgery as above. Electronically signed by: Fred Burrell M.D. 05/15/2025 10:02 AM
[2025-05-16 07:50] LABS: Anion Gap 6.0 (3-11); Blood Urea Nitrogen 7.0 mg/dl (6-23); Calcium 8.7 mg/dl (8.6-10.3); Carbon Dioxide 31.0 mmol/L (21-32); Chloride 100.0 mmol/L (98-107); Creatinine Clr Calc Pharmacy 154.5 ml/min; Glucose 156.0 mg/dl (70-99(Fasting)); Potassium 3.9 mmol/L (3.5-5.1); Sodium 137.0 mmol/L (136-145)
[2025-05-16] MEDS: FEXOFENADINE HCL 180 MG TAB PO SCH (08:06)
[2025-05-16] MEDS: GABAPENTIN 300 MG CAP PO SCH (08:06)
[2025-05-16] MEDS ORDERED: METOPROLOL TARTRATE 25 MG TAB PO SCH (09:00)
[2025-05-16] MEDS ORDERED: LOSARTAN POTASSIUM 25 MG TAB PO SCH (09:00)
--- NOTE | 2025-05-16 09:10 | Discharge Summary ---
Date of Service May 16, 2025 Admission HPI Per Admitting Provider This is a 50-year-old female well-known to me presents with persistent neck and arm pain and failing course of nonoperative care is here for surgical invention. Principal Diagnosis Cervical spondylosis with radiculopathy Discharge Data Allergies Allergy/AdvReac Type Severity Reaction Status Date / Time Surgical Glue Allergy Intermediate Swelling, Uncoded 05/15/25 06:17 Redness, Weeping of wound Consultations 05/15/25 11:11 Consult Hospitalist Routine Procedures Performed Operation Date: 05/15/25 07:45 Actual Procedures p C4-C5 Anterior Cervical Discectomy and Fusion, Spinal Cord Monitoring(Not Applicable) - Gaston Quintero DO Ordered Studies 05/15/25 [place] cervical 2-3V Routine Hospital Course (1) Cervical spondylosis with radiculopathy: Patient underwent anterior cervical discectomy and fusion tolerated this well was taken to the orthopedic floor postoperative. Postop day #1 she was up and ambulating. Swallowing well. No hoarseness. Arm symptoms markedly improved. Excellent strength testing. Subsequent discharge home. Discharge orders and instructions found in chart for further review. Total Time Total Time Spent Total Time Spent (In Minutes): 20 minutes Discharge Plan Discharge Items Patient Disposition: Home - Self-Care Reason For Visit: Cervical Radiculopathy Discharge Diagnosis: Cervical radiculopathy Activity: As commented below Non-emergency contact: Primary Care Provider Call non-emergency contact if: you have any medication questions Follow-up/Referrals: Renato Blackmon DO [Primary Care Provider] - Diet: Regular Addtl Attending Provider Instructions: ACTIVITY RECOMMENDATIONS: SELF CARE INSTRUCTIONS AFTER CERVICAL FUSIONS 1. No smoking. Smoking drastically decreases the chance of a solid fusion. 2. No bending, lifting more than 5 pounds, or twisting (roll like a log when tu rning in bed). 3. You may shower 3 days after surgery. Thoroughly dry wound. Do not soak in the tub. 4. Cervical collar: Must be worn at all times including sleeping. You may remove the brace only to bath, eat and if you are sitting in a recliner. 5. Please walk as much as you can for exercise. Gradually increase the distance that you walk as your endurance increases. 6. You may return to previous diet. SPECIAL CARE INSTRUCTIONS: VERY IMPORTANT TO READ AND REVIEW A. Do not take any anti-inflammatory medications (i.e. Indocin, Advil, Aspirin, Naprosyn, Aleve, Motrin, etc.) as these may inhibit the chance of a solid fusion. Tylenol is okay to take. B. Your surgical incision has been closed with a cosmetic suture under the skin that will dissolve in about 6 weeks. In 14 days, you can use a pair of clean scissors and cut the suture that is left outside of the skin at the ends of your incision. C. Complications are uncommon, but please contact us if you have any signs or symptoms of: 1. wound infection (fever higher than 102.5 degrees F, redness, separation of wound, drainage, or increasing pain from the incision) 2. blood clots in legs (pain, swelling, redness and warmth in legs) 3. urinary tract infection (fever higher than 102.5 degrees, burning upon urination or increased frequency of urination) 4. nerve problems (inability to walk on your toes or heels, numbness, loss of bowel or bladder control) 5. any other symptoms that concern you. D. Please call the office at if you have any concerns or questions about your operation or recovery. MANAGING PAIN AFTER SPINAL SURGERY 1. Narcotic medication is intended for short-term use and will be provided for surgical pain. Surgical pain usually lasts for a period of 4-6 weeks. Narcotic medication includes Percocet, Vicodin, Darvocet, Tylenol #3 or Lortab. 2. Longer-term pain is more appropriately treated with non-narcotic medication such as Tylenol ES. 3. Muscle spasm is not appropriately treated with narcotics. Muscle relaxers such as Soma, Flexeril or Skelaxin can be used along with Tylenol ES. 4. Remember that we all live with some "aches and pains". This is not unusual or uncommon after an injury or as we get older. 5. We will provide appropriate medication within the normal guidelines of their prescribed use. We will also be very cautious and aware of potential abuse and extended duration of patients' medication needs. 6. Please allow 2-3 days to process refills. Prescriptions will not be mailed but must be picked up at the office. FOLLOW UP VISIT: Keep your scheduled follow-up appointment. Any questions, please call the office at . Pending Studies at Discharge: No Stand-Alone Forms: My [facility], Smoking Cessation Medications and DC Order Prescriptions: New tramadol 50 mg tablet 50 mg PO Q6H PRN (Reason: pain, moderate) Qty: 30 0RF oxycodone 5 mg tablet 5 mg PO Q6H PRN (Reason: pain) Qty: 30 0RF Continued fexofenadine 180 mg Tablet 180 mg PO QAM losartan 25 mg Tablet 25 mg PO QAM gabapentin 300 mg Capsule 300 mg PO QAM Rx Instructions: Up to TID metoprolol tartrate 25 mg Tablet 25 mg PO QAM cholecalciferol (vitamin D3) [Vitamin D3] 125 mcg (5,000 unit) Tablet 250 mcg PO QAM Rx Instructions: Preop/Postop tramadol 50 mg tablet 50 mg PO Q6H PRN (Reason: pain, moderate) Qty: 30 0RF oxycodone 5 mg tablet 5 mg PO Q6H PRN (Reason: pain) Qty: 30 0RF Discontinued meloxicam 15 mg Tablet 15 mg PO QAM Discharge Orders: Discharge Order (Routine); Ordered 05/16/25 Ordered By: Gaston Quintero Admission Data Admit Date/Time: 05/15/25 09:28 Attending Provider: Gaston Quintero Admit Provider: Gaston Quintero Primary Care Provider: Renato Blackmon Other Providers: Melvi Herrera; Sonya Garcia
[2025-05-16] MEDS: dexAMETHasone 6 MG in SYRINGE 0 ML IV SCH (10:21)
== END 2025-05-16 10:34 | disposition home or self-care (01) ==
LOC: ASU 06:19 → 3E 06:19